=== PATIENT | female | born 1950 | race Caucasian/White ===

== ENCOUNTER → 2016-10-05 | Outpatient (CLI) | payer MEDICARE, BC, OTHER ==
[~2016-10-05] MED LIST: ASPI1TAB PO; ATOR1TAB19 PO; CELE10TA PO; CHLO25TA PO; CORITAB5 PO; CQ10 PO; FLON1SPR; MAGN1TAB25 PO; METO-209 PO; MULT1TAB15 PO; PEPC1TAB4 PO; SPIR25TA2 PO; TRAM50TA2 PO; TYLE650T35 PO
--- NOTE | 2016-10-05 12:22 | REP ---
Chest two views HISTORY: Acid reflux Comparison: None The lungs are clear. The heart is normal in size. The pulmonary vasculature is normal in appearance. The bony structure is intact. IMPRESSION: No acute disease. Signed by Narciso Jc MD 10/05/2016 12:14 P
[2016-10-05 12:23] LABS: INR 0.94
--- NOTE | 2016-10-05 18:49 | ECGEPIP ---
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 PATIENT WAS THEN MILDLY BRADYCARDIC OTHERWISE NO SIGNIFICANT CHANGES Electronically Signed On 10-05-2016 18:48:55 EST by Morales Howard
== END ==
LOC: M ADMPAT 10:35
PROVIDERS: ATTEND Orthopaedic Surgery
DX: M12.9 Arthropathy, unspecified (principal); Z01.818 Encounter for other preprocedural examination; I10 Essential (primary) hypertension; K21.9 Gastro-esophageal reflux disease without esophagitis; Z79.01 Long term (current) use of anticoagulants; Z79.899 Other long term (current) drug therapy

== ENCOUNTER 2016-10-19 05:39 | Inpatient (IN) | payer MEDICARE, BC, OTHER ==
[2016-10-05 11:43] VITALS: BP 100/76
--- NOTE | 2016-10-17 16:38 | HPE ---
DATE OF ADMISSION: 10/19/2016 CHIEF COMPLAINT: Left knee pain. HISTORY OF PRESENT ILLNESS: This is a pleasant 66-year-old female with progressively worsening left knee pain and stiffness. She has failed to improve with conservative treatment. She has elected for surgery for her continued symptoms. She has pain with weightbearing activities and her activities of daily living. X-rays of her knee are notable for advanced osteoarthritis of the left knee joint. She has consented for a left total knee arthroplasty by Dr. Corona Arreguin. Medical optimization was performed by Dr. Sewell. ALLERGIES: No known drug allergies. CURRENT MEDICATIONS: - Pepcid 20 mg - magnesium oxide 400 mg - Flonase 50 mcg - spironolactone 25 mg - Celexa 10 mg - Toprol-XL 100 mg - Lipitor 10 mg - baby aspirin once a day - chlorthalidone 25 mg once a day PAST MEDICAL HISTORY: 1. Kidney disorder. 2. Aortic valve disorder. 3. Chronic kidney disease, stage III. 4. Hypertension. 5. Obesity. 6. Gastroesophageal reflux disease (GERD). 7. Hypercholesterolemia. 8. Osteoarthritis. PAST SURGICAL HISTORY: Includes: 1. Tubal ligation. 2. Bilateral bunionectomies. 3. Right foot surgery. 4. Cholecystectomy. 5. Tonsils and adenoids. 6. Uvulopalatopharyngoplasty (UPPP). 7. Hernia repair. SOCIAL HISTORY: This lady is retired and she does not smoke. She occasionally drinks alcohol. FAMILY HISTORY: Noncontributory. REVIEW OF SYSTEMS: This patient denies chest pain, heart palpitations, cough, wheezing, difficulty breathing, and shortness of breath. She denies any abdominal pain, nausea, vomiting, diarrhea, or constipation. She denies recent upper respiratory infection or urinary tract infection symptoms. She does complain of persistent pain in the left knee and pain with weightbearing activities in her left knee. PHYSICAL EXAMINATION: GENERAL: She is a well-nourished, well-developed, in no acute distress, alert female patient. She walks with a moderate limp favoring the left lower extremity. She is not using assistive devices. VITAL SIGNS: She is 5 feet, 1 inch, weighs 237 pounds with a temperature of 97, blood pressure of 118/78, pulse of 80, and respirations of 18. NECK: Supple without adenopathy or jugular venous distention. There were no carotid bruits appreciated upon auscultation. LUNGS: Clear to auscultation without rales or wheeze throughout. HEART: Regular rate and rhythm. ABDOMEN: Bowel sounds were present. EXTREMITIES: Examination of the knee revealed intact skin. She had decreased range of motion secondary to pain and stiffness. The limb is neurovascularly intact. LABORATORY DATA: EKG showed normal sinus rhythm at 72 beats per minute. Chest x-ray showed no acute cardiopulmonary disease processes. UA showed a cloudy appearance, 2+ leukocyte esterase, 5 white blood cells, 1+ bacteria with a specific gravity of 1.021. Urine culture showed no growth. Nasal and sinus cultures showed normal christi. Prothrombin time 12.7, INR 0.94, sedimentation rate 46. Glucose 101, BUN 33, creatinine 1.7, sodium 140, potassium 5.2. IMPRESSION: Symptomatic osteoarthritis of the left knee joint. PLAN: Consented for a left total knee arthroplasty by Dr. Corona Arreguin.,
[2016-10-19] VITALS (15 sets, daily range): BP systolic 104–175; BP diastolic 60–99; O2SAT 95–97
[~2016-10-19] VITALS: Ht 160 cm; Wt 87.4 kg
[2016-10-19] MEDS ORDERED: LR 1,000 ML IV SCH ×3 (05:45→09:45)
[2016-10-19] MEDS ORDERED: MIDAZOLAM INJ 2 MG/2 ML VIAL (J2250) As Ordered ONE ×2 (06:51→07:01)
[2016-10-19] MEDS ORDERED: fentaNYL 100 MCG/2 ML INJECTION (J3010) As Ordered ONE ×4 (06:51→08:10)
[2016-10-19] MEDS ORDERED: LIDOCAINE 2% INJ 100 MG/5 ML SDV (FOR ANES.) As Ordered ONE (07:04)
[2016-10-19] MEDS ORDERED: PROPOFOL 200 MG/20 ML VIAL As Ordered ONE ×2 (07:04→07:05)
[2016-10-19] MEDS ORDERED: BUPIVACAINE HCL 0.25% 30 ML VIAL As Ordered ONE (07:14)
[2016-10-19] MEDS ORDERED: ceFAZolin 1GM INJ (J0690) As Ordered ONE (07:14)
[2016-10-19] MEDS ORDERED: TRANEXAMIC ACID 100 MG/ML 10ML VIAL As Ordered ONE (07:14)
[2016-10-19] MEDS ORDERED: EPINEPHrine INJ 1 MG/ML 1ML VIAL/AMP As Ordered ONE (07:15)
[2016-10-19] MEDS ORDERED: ROCURONIUM BROMIDE 50 MG/5 ML VIAL As Ordered ONE (07:21)
[2016-10-19] MEDS ORDERED: MIDAZOLAM INJ 2 MG/2 ML VIAL (J2250) IV ONE (07:45)
[2016-10-19] MEDS ORDERED: fentaNYL 100 MCG/2 ML INJECTION (J3010) IV ONE (07:45)
[2016-10-19] MEDS ORDERED: DESFLURANE 240 ML INHALANT As Ordered ONE (07:55)
[2016-10-19] MEDS ORDERED: ceFAZolin 1GM INJ (J0690) IR ONE (08:09)
[2016-10-19] MEDS ORDERED: BUPIVACAINE HCL 0.25% 30 ML VIAL XX ONE (08:09)
[2016-10-19] MEDS ORDERED: fentaNYL 100 MCG/2 ML INJECTION (J3010) XX ONE (08:09)
[2016-10-19] MEDS ORDERED: GLYCOPYRROLATE INJ 0.2 MG/ML 2 ML VIAL As Ordered ONE ×2 (08:10→08:36)
[2016-10-19] MEDS ORDERED: ONDANSETRON 4MG/2ML VIAL (J2405) As Ordered ONE ×2 (08:35→10:38)
[2016-10-19] MEDS ORDERED: NEOSTIGMINE 1MG/ML 5 ML SYRINGE (J2710) As Ordered ONE (08:36)
[2016-10-19] MEDS ORDERED: CHLORTHALIDONE 25 MG TAB PO SCH (09:00)
[2016-10-19] MEDS ORDERED: ROPIvacaine 0.5% 30 ML INJECTION (J2795) ONE (09:07)
[2016-10-19] MEDS ORDERED: dexameTHASONE 10 MG/1 ML VIAL PRES.FREE (J1100) ONE (09:07)
[2016-10-19] MEDS ORDERED: EPINEPHrine INJ 1 MG/ML 1ML VIAL/AMP ONE (09:07)
[2016-10-19] MEDS: fentaNYL 100 MCG/2 ML INJECTION (J3010) IV PRN ×3 (09:25→09:35)
[2016-10-19] MEDS ORDERED: ONDANSETRON 4MG/2ML VIAL (J2405) IV PRN ×2 (09:45→12:00)
[2016-10-19] MEDS ORDERED: HYDROmorphone HCL 1 MG/ML SYRINGE (J1170) IV PRN (09:45)
--- NOTE | 2016-10-19 11:01 | RO ---
DATE OF PROCEDURE: 10/19/2016 PREOPERATIVE DIAGNOSIS: Left knee osteoarthritis. POSTOPERATIVE DIAGNOSIS: Left knee osteoarthritis. PROCEDURE: Left total knee arthroplasty, PFC rotating platform, size 3 femur, size 2.5 tibia posterior stabilized size 15 polyethylene, and a 32 patellar button. SURGEON: Corona Arreguin MD ENOLOGIST: ANESTHESIA: General. ESTIMATED BLOOD LOSS (EBL): Less than 50. COMPLICATIONS: None. INDICATIONS: A 66-year-old woman who has had some gradually worsening left knee pain. It has been more than she could tolerate. She has been through multiple conservative management. She wished to go ahead with a left total knee arthroplasty. She understood the nature of the procedure, the risks of bleeding, infection, damage to nerves, vessels, persistent pain, wear, loosening, blood clots, medical problems, , among others. Preoperative clearance was obtained. DESCRIPTION OF PROCEDURE: The patient taken to the operating room, placed in supine position after general anesthesia was induced. The left lower extremity was prepped and draped in usual sterile fashion. Time-out was performed. I then created a longitudinal incision over the anterior aspect of the knee, and sharp dissection was carried down through subcutaneous tissue. I then performed a medial parapatellar arthrotomy in the usual fashion and everted the patella. I did a medial release, removed some of the soft tissue from the suprapatellar region on the femur. Then, flexed the knee up and used a canal initiating reamer on the femoral side to create a hole followed by the intramedullary guide set at 5 and 10. This was pinned in place by the assistant press operator, and then the distal femoral bone cut was made by the assistant press operator in the usual fashion while I protected soft tissues. I then sized the femur to be a 3 and placed the 3-degree external rotation guide, pinned this in place on the end of the femur, and the cutting block was then placed size 3, and the remaining cuts were made. I removed the excess bone. I removed any osteophytes from around the edges of the femur. We then prepared the tibia. The tibial alignment guide was then placed, the appropriate amount of valgus and posterior slope, and pinned this in place at about 4 mm off of the low side. The proximal tibial cut was made, and this bone was removed without difficulty. Soft tissues were protected at all times, and I used the cautery to remove the soft tissue attachments. Cautery was also used to control hemostasis throughout. I then removed soft tissue and osteophytes from either side of the joint using a memorial counselor and osteotome. There were fairly extensive osteophytes posteriorly. At this point, the tibial tray was prepared. A size 2.5 fit nicely. I then drilled and broached, and then we decided to go ahead with the posterior stabilized because the posterior cruciate ligament (PCL) was deficient. The box-cutting guide was then placed on the end of the femur and pinned in place. The distal cuts were made by me in the sagittal plane, and the assistant press operator made the axial cut on the end of the femur. I removed this excess bone, filed it down, and then placed trial components. We had used spacer blocks prior to this, and a size 12.5 and a size 15 seemed to be the ones that were most appropriate. Once we placed the actual trial polyethylene in, it was clear that the size 15 was a better fit, had no excessive tightness in flexion or extension, and had good stability. Overall, it was an excellent fit. I then freehand cut the patella, removing about 7 mm of bone, sized to be a 32, drilled the holes, placed a 32 trial button, put the knee through a range of motion. Again, was very happy with the way the knee moved and happy with the range of motion. There is no clicking or catching noted. The trial components removed. The assistant press operator prepared the bone cement in the modern technique on the back table, and then I irrigated the bony surfaces and dried them carefully. The tibial side was then cemented in after I copiously irrigated and dried the surfaces and packed the tibial tray in, then cemented on the femoral component in the usual fashion, placing some cement on the posterior condyles of the femoral component, and then placed the 15 rotating platform size 3 polyethylene, brought the knee out in extension. We had removed any excess bone cement throughout. Cement on the patellar component held it in place with the clamp and waited until the cement hardened. We irrigated again copiously. Controlled hemostasis with the cautery. I then closed the deep layer was some interrupted #1 Vicryl sutures, and then a running Stratafix suture was placed in each direction with the assistant press operator helping with this closure. Again, irrigated. Closed the subcutaneous with 2-0 Vicryl and the skin with bassam. The PainBuster catheter was inserted through the lateral aspect of the knee into the knee joint, and the catheter was fed through this. We primed it and attached it to the thigh. A sterile dressing was applied. Tourniquet was deflated. She was taken to recovery room in stable condition. There were no known complications. The plan will be routine postoperative for a knee replacement. The assistant press operator was instrumental in holding retractors and making a couple of the bone cuts and closing the wound.
[2016-10-19] MEDS ORDERED: MORPHINE PCA 1MG/ML 100ML CADD As Ordered ONE (11:13)
[2016-10-19] MEDS ORDERED: FLEET ENEMA PR PRN (11:45)
[2016-10-19] MEDS: LR 1,000 ML IV SCH ×2 (11:45→23:37)
[2016-10-19] MEDS ORDERED: ACETAMINOPHEN TAB 650MG DOSE (2X325MG) PO PRN (11:45)
[2016-10-19] MEDS ORDERED: PATIENT IS CURRENTLY ON AN ON-Q PAIN BUSTER PAIN RELIEF SYSTEM XX SCH (12:00)
[2016-10-19] MEDS ORDERED: MORPHINE PCA 1MG/ML 100ML CADD IV PRN (12:00)
[2016-10-19] MEDS ORDERED: diphenhydrAMINE INJ 50MG/ML VIAL (J1200) IV PRN (12:00)
[2016-10-19] MEDS ORDERED: NALOXONE INJ 0.4 MG/1 ML VIAL (J2310) IV PRN ×2 (12:00→19:45)
[2016-10-19] MEDS ORDERED: EPIDURAL/PCA KEYS XX PRN (12:00)
[2016-10-19] MEDS ORDERED: NALBUPHINE HCL 10 MG/ML AMP (J2300) IV PRN (12:00)
--- NOTE | 2016-10-19 12:13 | CR ---
DATE OF CONSULTATION: 10/19/2016 REASON FOR CONSULT: Management of chronic medical issues. CHIEF COMPLAINT: Left knee pain, status post left total knee arthroplasty by Dr. Corona Arreguin. REQUESTING PHYSICIAN: Orthopedic surgeon Dr. Corona Arreguin. HISTORY OF PRESENT ILLNESS: 66-year-old female with history of chronic kidney disease, baseline creatinine of 1.5, morbid obesity, hypertension, reflux, hypercholesterolemia, osteoarthritis, tubal ligation, cholecystectomy, hernia repair, tonsillectomy, adenoidectomy, uvulopalatopharyngoplasty, bilateral bunionectomies, right foot surgery, retired, no previous smoking or alcohol use, non-bleeding internal hemorrhoids on colonoscopy October 2013, complex renal cyst, presents for left knee arthroplasty due to severe osteoarthritis of the left knee with limitations of activities of daily living. Patient was optimized by Dr. Sewell. EKG on 10/05/2016 showed sinus rhythm with nonspecific T wave abnormalities with mild bradycardia, otherwise no significant changes from prior EKG. Currently denies any chest pain, pressure, tightness, shortness of breath, nausea, vomiting, abdominal pain, diarrhea, changes in weight, depression, anxiety, dysuria, urgency, frequency, upper or lower extremity weakness. Hospitalist service was consulted for management of chronic medical issues. PAST MEDICAL HISTORY: 1. Chronic kidney disease stage III. Baseline creatinine 1.5. 2. Hypertension. 3. Obesity. 4. Reflux. 5. Hypercholesterolemia. 6. Osteoarthritis. 7. Internal hemorrhoids. 8. Complex renal cysts, follows with urologist, Dr. Wallace. HOME MEDICATIONS: - Pepcid 20 daily - magnesium oxide 400 daily - Flonase 50 mcg daily - spironolactone 25 mg daily - Celexa 10 daily - Topamax 100 daily - Lipitor 10 daily - aspirin 81 mg daily - chlorthalidone 25 daily PAST SURGICAL HISTORY: 1. Tubal ligation. 2. Bilateral bunionectomies. 3. Right foot surgery. 4. Cholecystectomy. 5. Tonsillectomy. 6. Hemorrhoidectomy. 7. Uvulopalatopharyngoplasty. 8. Hernia repair. ALLERGIES: No known drug allergies. FAMILY HISTORY: Father in the 80s with myocardial infarction (AL). Mother age 93 of cerebrovascular accident (CVA). Two siblings at . One brother passed from pulmonary embolism (PE) in the 50s. One brother with rheumatoid arthritis. Three brothers, four sisters, two sons, one daughter all are healthy. SOCIAL HISTORY: One to two caffeinated beverages a day. Regular diet. No alcohol use, drug use or smoking history. REVIEW OF SYSTEMS: Per history of present illness. PHYSICAL EXAMINATION: Vitals: Temperature 97.6, pulse 66, respiratory 16, blood pressure 129/82, 95% on room air. Generally, patient is awake, alert, oriented to person, place and time, no icterus, no jaundice, no use of respiratory accessory muscles. No pallor. Pupils are round and reactive. Extraocular muscles are intact. No jugular venous distention or thyromegaly. Lungs: Clear to auscultation. No wheezing, rales or rhonchi. Heart: S1, S2, sinus rhythm. Abdomen: Soft, nontender, nondistended. Obese abdomen. Extremities: Left postop knee. Peripheral pulses palpable. No current laboratory data. ASSESSMENT AND PLAN: This is a 66-year-old female status post left knee arthroplasty due to severe osteoarthritis with no postop complications. She has prior history of chronic kidney disease stage III, hypertension, obesity, reflux , hypercholesterolemia, arthritis, admitted for the following issues: 1. Left knee osteoarthritis status post left knee arthroplasty. Postop management per primary team, Dr. Corona Arreguin. Physical therapy (PT), occupational therapy (OT), pain management, chad regimen and deep venous thrombosis (DVT) prophylaxis. Activity as tolerated. 2. Abnormal EKG with prior episodes of sinus bradycardia. No current complaints of shortness of breath, chest pain, pressure, tightness, palpitations, lightheadedness. Will monitor. 3. Hypertension, stable. Continue with home medications, spironolactone, Toprol and chlorthalidone. 4. Hyperlipidemia, continue on Lipitor. 5. History of reflux, continue on Pepcid. MTDD
[2016-10-19 12:37] LABS: BASO % 0.1 % (0.0-1.0); EOS % 0.2 % (0.0-3.0); LARGE UNSTAINED CELL % 0.3 % (0.0-4.0); LYMPH # 0.9 K/mm3 (1.5-4.5); MEAN CORPUSCULAR HEMOGLOBIN 30.5 pg (27.0-33.0); MEAN CORPUSCULAR HGB CONC 33.3 g/dl (32.0-36.5); MEAN CORPUSCULAR VOLUME 91.5 fl (80.0-96.0); MONO # 0.3 K/mm3 (0.0-0.8); NEUTROPHILS # 11.8 K/mm3 (1.8-7.7); NEUTROPHILS % 90.4 % (36.0-66.0); PLATELET COUNT, AUTOMATED 183 k/mm3 (150-450)
[2016-10-19 12:53] LABS: ALBUMIN 3.4 GM/DL (3.2-5.2); ALBUMIN/GLOBULIN RATIO 1.17 (1.00-1.93); BILIRUBIN,TOTAL 0.5 MG/DL (0.2-1.0); CALCIUM LEVEL 9.1 MG/DL (8.8-10.2); CREATININE FOR GFR 1.56 MG/DL (0.55-1.02); GLOMERULAR FILTRATION RATE 35.2 (>45); MAGNESIUM LEVEL 1.8 MG/DL (1.8-2.4); TOTAL PROTEIN 6.3 GM/DL (6.4-8.2)
[2016-10-19 13:06] LABS: POTASSIUM SERUM 5.2 MEQ/L (3.5-5.1)
[2016-10-19] MEDS ORDERED: WARFARIN SOD 5 MG TAB PO SCH (17:00)
[2016-10-19] MEDS ORDERED: NALOXONE INJ 0.4 MG/1 ML VIAL (J2310) IV STA (19:22)
[2016-10-19] MEDS ORDERED: NALOXONE INJ 0.4 MG/1 ML VIAL (J2310) IV ONE (19:30)
[2016-10-19] MEDS: FLUTICASONE PROP 0.05% NASAL SPRAY 16 GM (FLONASE) SCH (21:23)
[2016-10-19] MEDS: CitaloPRAM (CeleXA) 10 MG TABLET PO SCH (21:24)
[2016-10-19] MEDS: ATORVASTATIN 10 MG TAB PO SCH (21:24)
[2016-10-20] VITALS (10 sets, daily range): BP systolic 122–158; BP diastolic 58–78; O2SAT 91–94
[2016-10-20 05:29] LABS: MEAN CORPUSCULAR HEMOGLOBIN 31.2 pg (27.0-33.0); MEAN CORPUSCULAR HGB CONC 33.5 g/dl (32.0-36.5); MEAN CORPUSCULAR VOLUME 93.1 fl (80.0-96.0); RED CELL DISTRIBUTION WIDTH 12.2 % (11.5-14.5); WHITE BLOOD COUNT 9.8 K/mm3 (4.0-10.0)
[2016-10-20 05:31] LABS: CALCIUM LEVEL 9.5 MG/DL (8.8-10.2); CREATININE FOR GFR 2.35 MG/DL (0.55-1.02)
[2016-10-20 05:36] LABS: POTASSIUM SERUM 5.2 MEQ/L (3.5-5.1)
[2016-10-20] MEDS: NS 1,000 ML IV SCH ×2 (07:37→15:10)
[2016-10-20] MEDS ORDERED: SOD POLYSTYRENE SULFONATE SUSP 15 GM/60 ML UD PO ONE (08:00)
[2016-10-20] MEDS ORDERED: CALCIUM GLUCONATE 1,000 MG in D5W MINI-BAG PLUS 100 ML IV ONE (08:00)
[2016-10-20] MEDS: FLUTICASONE PROP 0.05% NASAL SPRAY 16 GM (FLONASE) SCH ×2 (08:31→21:34)
[2016-10-20] MEDS: METOPROLOL SUCC (TopROL XL) 100MG *XL* TAB PO SCH (08:32)
[2016-10-20] MEDS: OCUVITE 1 TAB PO SCH (08:33)
[2016-10-20 08:42] LABS: INR 1.16
[2016-10-20] MEDS ORDERED: SPIRONOLACTONE 25 MG TAB PO SCH (09:00)
--- NOTE | 2016-10-20 09:37 | REP ---
Left knee two views postoperative study: Comparison is a preoperative study dated 07/13/2016. There is a total knee arthroplasty with the components tightly applied and in satisfactory positions alignment in both projections. Skin bassam are incidentally noted. Signed by Marshall Jeter MD 10/20/2016 09:28 A
--- NOTE | 2016-10-20 09:44 | IPN ---
DATE: 10/20/2016 Patient complains of left knee pain. Stated is crampy but improved with pain medications. Overnight patient had a creatinine increase from 1.56 to 2.35. Input and output is documented at 2.8 liters in, output of 580. Currently, current weight is 110.2 kg. Patient denies any shortness of breath, chest pain, pressure, tightness, palpitations, lightheadedness, nausea, vomiting, abdominal pain or diarrhea. Current temperature 98.6, pulse 93, respiratory 18, blood pressure 122/69, 97% 2 liters nasal cannula. Lungs: Clear to auscultation. No wheezing, rales or rhonchi. Heart: S1, S2. Sinus rhythm. Abdomen: Soft, obese, nontender, nondistended. Extremities: Postop left knee. Peripheral pulses are noted. No cyanosis or clubbing. LABORATORY DATA: Notable for a creatinine of 2.35 from baseline of 1.5. CBC has been reviewed. Microbiology: None. ASSESSMENT AND PLAN: 66-year-old female with history of complex cyst in the left kidney since 11/2012, chronic kidney stage III with acute on chronic baseline creatinine of 1.5, hypertension, obesity, reflux, hypercholesterolemia, osteoarthritis, external hemorrhoids, presents to [facility] for left knee arthroplasty due to severe osteoarthritis limiting activities of daily living. CURRENT ISSUES: 1. Acute on chronic renal failure, history of complex cyst, follows with urologist, Dr. Wallace. Patient's diuretics and reji inhibitor have been discontinued. Trial of fluids and repeat renal ultrasound. Monitor input and output, daily weights, and avoid nephrotoxins. Renally dose all medications. 2. Hypertension on metoprolol. 3. Hyperlipidemia, on Lipitor. 4. Left knee arthroplasty postop day #1. Deep venous thrombosis (DVT) prophylaxis with Coumadin per orthopedic surgery. Pain control, physical therapy (PT), bowel regimen. 6. History of reflux on Pepcid. 7. Depression on Celexa. 8. Hyperkalemia, calcium gluconate. kayexalate. Repeat metabolic panel this afternoon. MTDD
[2016-10-20] MEDS: MIRALAX *UNIT DOSE* 17GM PACKET PO SCH (10:20)
[2016-10-20] MEDS: SENOKOT S TAB PO SCH ×2 (10:21→21:33)
[2016-10-20] MEDS: PERCOCET 5MG/325MG TAB PO PRN ×3 (10:21→21:32)
--- NOTE | 2016-10-20 11:14 | REP ---
Renal ultrasound: Comparison is 12/30/2015. The right kidney is normal size measuring 10.0 x 4.6 x 4.0 cm. The left kidney is atrophic size measuring 8.5 x 5.5 x 4.9 cm (previously normal size 10.3 x 3.8 x 4.8 cm). The Renal cortical echogenicity is normal bilaterally. There is no hydronephrosis on the right on the left. No renal calculi are identified. There are no cysts in the right kidney. In the left kidney there are two cysts, one at the mid pole measuring 2.0 cm and one at the lower pole measuring 2.1 cm. Upon review of prior studies I note that on a CT of the abdomen and pelvis dated 02/27/2015 four left renal cysts were identified. There was a cyst medially containing a small mural calcification, compatible with a Bosniak type 2 cyst. This calcification is not identified by ultrasound today, likely because of its small size. Calcified vascular atheroma was noted in intraparenchymal arteries. No renal masses are identified. Impression: No hydronephrosis, calculus or renal mass on the right on the left. There are left renal cysts as described. Bladder: There is a Sanchez catheter in the bladder, the bladder is collapsed and cannot be evaluated at this time. Signed by Marshall Jeter MD 10/20/2016 11:06 A
[2016-10-20] MEDS ORDERED: WARFARIN SOD 3 MG TAB PO ONE (17:00)
[2016-10-20 18:37] LABS: CALCIUM LEVEL 8.9 MG/DL (8.8-10.2); CREATININE FOR GFR 1.82 MG/DL (0.55-1.02); GLOMERULAR FILTRATION RATE 29.5 (>45); POTASSIUM SERUM 4.4 MEQ/L (3.5-5.1)
[2016-10-20] MEDS: ATORVASTATIN 10 MG TAB PO SCH (21:32)
[2016-10-20] MEDS: CitaloPRAM (CeleXA) 10 MG TABLET PO SCH (21:33)
[2016-10-21] VITALS (13 sets, daily range): BP systolic 133–160; BP diastolic 67–81; O2SAT 74–99
[2016-10-21] MEDS ORDERED: SLF 3 ML SYR IV PRN (00:30)
[2016-10-21 00:46] LABS: CALCIUM LEVEL 8.7 MG/DL (8.8-10.2); CREATININE FOR GFR 1.54 MG/DL (0.55-1.02); GLOMERULAR FILTRATION RATE 35.8 (>45); POTASSIUM SERUM 4.2 MEQ/L (3.5-5.1)
[2016-10-21] MEDS: PERCOCET 5MG/325MG TAB PO PRN ×3 (02:46→20:59)
[2016-10-21] MEDS: SLF 3 ML SYR IV SCH ×3 (05:41→21:00)
[2016-10-21 06:00] LABS: MEAN CORPUSCULAR HEMOGLOBIN 31.9 pg (27.0-33.0); MEAN CORPUSCULAR HGB CONC 34.9 g/dl (32.0-36.5); MEAN CORPUSCULAR VOLUME 91.3 fl (80.0-96.0); RED CELL DISTRIBUTION WIDTH 12.3 % (11.5-14.5); WHITE BLOOD COUNT 8.8 K/mm3 (4.0-10.0)
[2016-10-21 06:05] LABS: INR 1.47
[2016-10-21 06:19] LABS: CALCIUM LEVEL 9.1 MG/DL (8.8-10.2); CREATININE FOR GFR 1.45 MG/DL (0.55-1.02); GLOMERULAR FILTRATION RATE 38.3 (>45); POTASSIUM SERUM 4.4 MEQ/L (3.5-5.1)
[2016-10-21] MEDS: ONDANSETRON 4MG/2ML VIAL (J2405) IV PRN (09:24)
[2016-10-21] MEDS ORDERED: ONDANSETRON 4MG/2ML VIAL (J2405) IV PRN (09:30)
[2016-10-21] MEDS: FAMOTIDINE 20 MG TAB PO PRN (09:45)
[2016-10-21] MEDS: FLUTICASONE PROP 0.05% NASAL SPRAY 16 GM (FLONASE) SCH ×2 (09:45→20:59)
[2016-10-21] MEDS: SENOKOT S TAB PO SCH ×2 (09:45→20:59)
[2016-10-21] MEDS: MIRALAX *UNIT DOSE* 17GM PACKET PO SCH (09:45)
[2016-10-21] MEDS: METOPROLOL SUCC (TopROL XL) 100MG *XL* TAB PO SCH (09:46)
[2016-10-21] MEDS: OCUVITE 1 TAB PO SCH (09:46)
--- NOTE | 2016-10-21 12:40 | IPN ---
DATE: 10/21/2016 The patient is seen and examined at the bedside. Chart has been reviewed. This morning, the patient has no new complaints aside from pain at the surgical site on the left. Denies any shortness of breath, chest pain, pressure, tightness, nausea, vomiting, epigastric pain, constipation, diarrhea. Tolerating her diet well. Did not sleep very well last evening due to multiple interruptions and could not find the correct position to sleep secondary to knee pain. VITAL SIGNS: Temperature 96.1, pulse 107, respiratory rate 22, blood pressure 145/22, 95% on room air. Input 1110, output 725. GENERAL: Awake, alert, oriented to time. Answering questions appropriately. LUNGS: Clear to auscultation with no wheezing, rales or rhonchi. HEART: S1, S2. Sinus rhythm. ABDOMEN: Obese. Soft, nontender, nondistended. EXTREMITIES: No cyanosis or clubbing. Postoperative left knee. Laboratory data, imaging studies and microbiology have been reviewed. ASSESSMENT AND PLAN: 66-year-old female with a history of complex cyst in the left kidney since November 2012, chronic kidney disease, baseline creatinine 1.5, hypertension, obesity, reflux, hypercholesterolemia, osteoarthritis, external hemorrhoids, who presented to the [facility] for left knee arthroplasty with severe osteoarthritis limiting her activities of daily living. CURRENT ISSUES: 1. Acute on chronic renal failure stage III with history of complex cyst. Followed by urologist, Dr. Wallace. The patient's diuretics and MARINO inhibitor have been discontinued. Trial of intravenous fluids. Have brought her back to her baseline creatinine. Renal ultrasound is unremarkable with a history of complex renal cyst managed by outpatient urologist, Dr. Wallace. Renally dose all medications. Strict input and output, daily weights, and avoid nephrotoxins. 2. Hypertension. On metoprolol. Avoid MARINO inhibitors or diuretics due to renal failure. 3. Hyperlipidemia. On Lipitor. 4. Left knee arthroplasty, postoperative day number 2. 5. Deep vein thrombosis (DVT) prophylaxis with Coumadin per orthopedic surgery, pain control, physical therapy (PT) and bowel regimen. 6. History of reflux. On Pepcid. 7. Depression. On Celexa. 8. Hyperkalemia. Resolved. The patient may be transferred to medical/surgical floor. [facility]
[2016-10-21 13:17] LABS: CALCIUM LEVEL 9.4 MG/DL (8.8-10.2); CREATININE FOR GFR 1.39 MG/DL (0.55-1.02); GLOMERULAR FILTRATION RATE 40.3 (>45); POTASSIUM SERUM 4.1 MEQ/L (3.5-5.1)
[2016-10-21] MEDS ORDERED: WARFARIN SOD 3 MG TAB PO ONE (17:00)
[2016-10-21 18:41] LABS: CALCIUM LEVEL 9.9 MG/DL (8.8-10.2); CREATININE FOR GFR 1.51 MG/DL (0.55-1.02); GLOMERULAR FILTRATION RATE 36.6 (>45); POTASSIUM SERUM 4.4 MEQ/L (3.5-5.1)
[2016-10-21] MEDS: ATORVASTATIN 10 MG TAB PO SCH (21:00)
[2016-10-21] MEDS: CitaloPRAM (CeleXA) 10 MG TABLET PO SCH (21:00)
[2016-10-22 00:16] LABS: CALCIUM LEVEL 9.5 MG/DL (8.8-10.2); CREATININE FOR GFR 1.38 MG/DL (0.55-1.02); GLOMERULAR FILTRATION RATE 40.6 (>45); POTASSIUM SERUM 4.1 MEQ/L (3.5-5.1)
[2016-10-22] MEDS: PERCOCET 5MG/325MG TAB PO PRN ×4 (03:04→20:31)
[2016-10-22 05:50] LABS: MEAN CORPUSCULAR HEMOGLOBIN 31.3 pg (27.0-33.0); MEAN CORPUSCULAR HGB CONC 33.5 g/dl (32.0-36.5); MEAN CORPUSCULAR VOLUME 93.4 fl (80.0-96.0); WHITE BLOOD COUNT 8.4 K/mm3 (4.0-10.0)
[2016-10-22] MEDS: SLF 3 ML SYR IV SCH ×3 (05:58→21:18)
[2016-10-22 05:59] LABS: INR 1.76
[2016-10-22 06:00] VITALS: BP 147/82
[2016-10-22 06:06] LABS: CALCIUM LEVEL 9.9 MG/DL (8.8-10.2); CREATININE FOR GFR 1.4 MG/DL (0.55-1.02); GLOMERULAR FILTRATION RATE 39.9 (>45); POTASSIUM SERUM 4.2 MEQ/L (3.5-5.1)
[2016-10-22] MEDS: OCUVITE 1 TAB PO SCH (08:08)
[2016-10-22] MEDS: MIRALAX *UNIT DOSE* 17GM PACKET PO SCH (08:08)
[2016-10-22] MEDS: SENOKOT S TAB PO SCH ×2 (08:09→20:31)
[2016-10-22] MEDS: FLUTICASONE PROP 0.05% NASAL SPRAY 16 GM (FLONASE) SCH ×2 (08:09→20:31)
[2016-10-22] MEDS: METOPROLOL SUCC (TopROL XL) 100MG *XL* TAB PO SCH (08:09)
[2016-10-22 12:50] LABS: CALCIUM LEVEL 10.1 MG/DL (8.8-10.2); CREATININE FOR GFR 1.49 MG/DL (0.55-1.02); GLOMERULAR FILTRATION RATE 37.2 (>45); POTASSIUM SERUM 4.1 MEQ/L (3.5-5.1)
--- NOTE | 2016-10-22 15:04 | NOCOX ---
DATE OF PROCEDURE: 10/22/2016 Nocturnal oximetry was performed from 10/21/2016 to 10/22/2016 on room air. The patient's baseline oxygen saturation was 94%. Heart rate ranged from 83-109, oxygen saturation ranged from 71-100%. There were frequent variable desaturations that were short lived. Baseline tracing shows artifact. I question if the patient has a tremor. Longest continuous time with a saturation less than 88% was 50 seconds. The total continuous time with an oxygen saturation less than 88% was 3 minutes and 40 seconds. IMPRESSION: Variable desaturation with baseline artifact, question tremor. Consider obstructive sleep apnea workup if clinically suspected. JANETT
[2016-10-22] MEDS ORDERED: WARFARIN SOD 4 MG TAB PO ONE (17:00)
[2016-10-22 18:25] LABS: CALCIUM LEVEL 9.5 MG/DL (8.8-10.2); CREATININE FOR GFR 1.46 MG/DL (0.55-1.02); POTASSIUM SERUM 4.5 MEQ/L (3.5-5.1)
[2016-10-22] MEDS: FAMOTIDINE 20 MG TAB PO PRN (18:52)
[2016-10-22] MEDS: ONDANSETRON 4MG/2ML VIAL (J2405) IV PRN (18:52)
[2016-10-22] MEDS: ATORVASTATIN 10 MG TAB PO SCH (20:31)
[2016-10-22] MEDS: CitaloPRAM (CeleXA) 10 MG TABLET PO SCH (20:31)
[2016-10-22 22:00] VITALS: BP 132/68
[2016-10-23 00:32] LABS: CALCIUM LEVEL 9.4 MG/DL (8.8-10.2); CREATININE FOR GFR 1.42 MG/DL (0.55-1.02); GLOMERULAR FILTRATION RATE 39.3 (>45); POTASSIUM SERUM 4.2 MEQ/L (3.5-5.1)
[2016-10-23] MEDS: PERCOCET 5MG/325MG TAB PO PRN ×5 (02:27→22:38)
--- NOTE | 2016-10-23 04:24 | IPN ---
DATE: 10/22/2016 The patient is seen and examined at the bedside. Chart has been reviewed. This morning, the patient states that the leg is feeling much more comfortable. Physical therapy (PT) had evaluated her; awaiting clearance for discharge home. PHYSICAL EXAMINATION: VITAL SIGNS: Temperature 96.9, pulse 94, respiratory rate 18, blood pressure 147/82, 99% on room air. GENERAL: Awake, alert, oriented times three, answering questions appropriately. LUNGS: Clear to auscultation with no wheezing, rales or rhonchi. HEART: S1, S2. Sinus rhythm. ABDOMEN: Soft, nontender, nondistended. Positive bowel sounds. EXTREMITIES: Postoperative left knee. Distal pulses noted. Some ecchymosis at the ankle, but otherwise skin is pink, warm, dry and well-perfused. LABORATORY DATA: INR 1.76. CBC and metabolic panel have been reviewed and notable for creatinine of 1.4, baseline creatinine. ASSESSMENT AND PLAN: This is a 66-year-old female with history of complex cyst left kidney since November 2012, chronic kidney disease, baseline creatinine 1.5, hypertension, obesity, reflux, hypercholesterolemia, osteoarthritis, external hemorrhoids, who presented to the [facility] for left knee arthroplasty due to severe osteoarthritis limiting her activities of daily living. Postoperatively, the patient developed [id number] renal failure, transferred to hospitalist service, has since received intravenous fluids resulting in improvement to baseline creatinine. CURRENT ISSUES: 1. Left knee arthroplasty, postoperative day number three. Pain management, deep vein thrombosis (DVT) prophylaxis with Coumadin per orthopedic surgery. Physical therapy, bowel regiment. Awaiting PT clearance for home, then may be discharged safely as she is medically stable. 2. [id number] renal failure stage III currently at baseline creatinine. Avoid nephrotoxins. Renally dose all medications. Follows with Dr. Wallace for history of complex cyst. Diuretics and MARINO inhibitors have been discontinued. Trial of intravenous fluids have returned her creatinine back to normal. Renal ultrasound was unremarkable. No significant change from known history of complex cyst. Strict input and output, daily weights, and avoid nephrotoxins and renally dose all medications. 3. Hypertension. Currently on metoprolol. Avoid nephrotoxins, diuretics. If uncontrolled, may add Norvasc. DISPOSITION: Once cleared by physical therapy, may be discharged home without outpatient followup with her primary care physician. [facility]
[2016-10-23] MEDS: SLF 3 ML SYR IV SCH ×3 (05:08→22:39)
[2016-10-23 06:00] VITALS: BP 118/82
[2016-10-23] MEDS ORDERED: SENO8.6T10 PO (06:37)
[2016-10-23] MEDS ORDERED: PERCOCET PO (06:37)
[2016-10-23] MEDS ORDERED: PEG1POW PO (06:37)
[2016-10-23] MEDS ORDERED: COUM2.5T11 PO (06:45)
[2016-10-23 07:01] LABS: INR 1.88
[2016-10-23 07:05] LABS: MEAN CORPUSCULAR HEMOGLOBIN 30.9 pg (27.0-33.0); MEAN CORPUSCULAR HGB CONC 33.8 g/dl (32.0-36.5); MEAN CORPUSCULAR VOLUME 91.5 fl (80.0-96.0); WHITE BLOOD COUNT 7.5 K/mm3 (4.0-10.0)
[2016-10-23] MEDS ORDERED: ONDA4TAB6 PO (07:24)
[2016-10-23] MEDS: METOPROLOL SUCC (TopROL XL) 100MG *XL* TAB PO SCH (09:00)
[2016-10-23] MEDS: MIRALAX *UNIT DOSE* 17GM PACKET PO SCH (09:00)
[2016-10-23] MEDS: SENOKOT S TAB PO SCH ×2 (09:58→22:38)
[2016-10-23] MEDS: OCUVITE 1 TAB PO SCH (10:00)
[2016-10-23] MEDS: FLUTICASONE PROP 0.05% NASAL SPRAY 16 GM (FLONASE) SCH ×2 (10:02→22:38)
[2016-10-23] MEDS: ONDANSETRON 4MG/2ML VIAL (J2405) IV PRN (13:08)
[2016-10-23 14:00] VITALS: BP 119/65
[2016-10-23] MEDS ORDERED: WARFARIN SOD 2.5 MG TAB PO SCH (17:00)
--- NOTE | 2016-10-23 18:24 | IPN ---
DATE: 10/23/2016 Patient is seen and examined at the bedside. Chart has been reviewed. She has no complaints of chest pain, pressure or tightness, lightheadedness, near syncope. Slept well last night. Pain is better controlled with current medications. She is requesting some oral Zofran which helps her at home. VITAL SIGNS: Temperature 96.6, pulse 80, respiratory rate 18, blood pressure 115/72, 99% on room air. LUNGS: Clear to auscultation. No wheezing, rales, or rhonchi. HEART: S1, S2, sinus rhythm. ABDOMEN: Soft, nontender, nondistended. Positive bowel sounds. Obese abdomen. EXTREMITIES: Postoperative left knee, distal pulses noted, some ecchymosis of the ankle, otherwise pink, warm, dry, and well-perfused. LABORATORY DATA: Has been reviewed. INR is 1.88, creatinine is at baseline at 1.42. ASSESSMENT AND PLAN: This is a 66-year-old female with history of chronic kidney disease stage III, history of complex cyst on the left kidney since November 2012, followed by Dr. Wallace, urologist, as outpatient, baseline creatinine of 1.4 to 1.5, hypertension, obesity, reflux, hypercholesterolemia, osteoarthritis, external hemorrhoids, presented to [facility] for a left knee arthroplasty due to severe osteoarthritis limiting her activities of daily living. Postoperatively, patient developed acute on chronic renal failure, transferred to hospitalist service, and has received intravenous fluids, resulting in improvement to baseline creatinine. CURRENT ISSUES: 1. Left knee arthroplasty. Postoperative day #4. Pain management, deep venous thrombosis (DVT) prophylaxis with Coumadin, per orthopedic surgery. Physical therapy. Bowel regimen. Awaiting physical therapy (PT) clearance for home then may be safely discharged as she is medically stable. 2. Acute on chronic renal failure stage III, improved back to baseline. Avoid nephrotoxins. Renally dose all medications. Follows with Dr. Wallace for history of complex cyst since 2012. Diuretics and angiotensin-converting enzyme (MARINO) inhibitors have been discontinued. Patient has improved well back to baseline with a trial of intravenous fluids. Renal ultrasound was unremarkable aside from known history of complex cyst. Strict intake and output, daily weights. Avoid nephrotoxins and renally dose all medications. 3. Hypertension. Currently on metoprolol. Avoid diuretics, angiotensin-converting enzyme (MARINO) inhibitors and ARBs for now. May add Norvasc in case patient's blood pressure is not well maintained. DISPOSITION: Once cleared by physical therapy she may be discharged home with immediate outpatient followup with her primary care physician and orthopedic surgery. INR to be managed by orthopedic surgery. JANETT
[2016-10-23 22:00] VITALS: BP 120/63
[2016-10-23] MEDS: ATORVASTATIN 10 MG TAB PO SCH (22:38)
[2016-10-23] MEDS: CitaloPRAM (CeleXA) 10 MG TABLET PO SCH (22:38)
[2016-10-23] MEDS: FAMOTIDINE 20 MG TAB PO PRN (22:38)
[2016-10-24] MEDS: PERCOCET 5MG/325MG TAB PO PRN ×3 (04:03→14:45)
[2016-10-24] MEDS: SLF 3 ML SYR IV SCH (05:07)
[2016-10-24 06:00] VITALS: BP 119/62
[2016-10-24] MEDS: SENOKOT S TAB PO SCH (08:32)
[2016-10-24] MEDS: MIRALAX *UNIT DOSE* 17GM PACKET PO SCH (08:32)
[2016-10-24] MEDS: OCUVITE 1 TAB PO SCH (08:32)
[2016-10-24 08:33] VITALS: BP 119/62
[2016-10-24] MEDS: METOPROLOL SUCC (TopROL XL) 100MG *XL* TAB PO SCH (08:33)
[2016-10-24] MEDS: FLUTICASONE PROP 0.05% NASAL SPRAY 16 GM (FLONASE) SCH (08:33)
--- NOTE | 2016-10-24 14:03 | DSES ---
DATE OF ADMISSION: 10/19/2016 DATE OF DISCHARGE: PRIMARY DISCHARGE DIAGNOSES: 1. Left knee osteoarthritis status post left knee arthroplasty. 2. Acute on chronic renal failure, stage III. 3. History of complex cyst. 4. Hypertension. DISCHARGE MEDICATIONS: - Percocet 5/325 one tablet every 4 hours as needed for pain - MiraLAX one packet daily - warfarin 2.5 mg as directed - Senokot one tablet twice a day - aspirin 81 daily - atorvastatin 10 at bedtime - Celexa 10 at bedtime - Coricidin one tablet by mouth twice a day - Pepcid 20 twice a day as needed - Flonase 50 mcg twice a day - magnesium oxide 400 daily - metoprolol 100 daily - multivitamin one tablet daily - Coenzyme Q 200 at bedtime The patient's chlorthalidone, spironolactone and tramadol have been discontinued. The patient is to have an immediate followup with her primary care physician this week. Avoid NSAID use, diuretics, MARINO inhibitors, ARB due to acute on chronic renal failure, peak creatinine of 2.35, baseline creatinine of 1.4, and history of chronic renal cysts. HOSPITAL COURSE: 66-year-old female with history of chronic kidney disease Stage III, complex cyst of the left kidney since November [address] Wallace as outpatient with baseline creatinine of 1.4 to 1.5, hypertension, obesity, reflux, hypercholesterolemia, osteoarthritis, and external hemorrhoids who presented to [facility] for a left knee arthroplasty due to severe osteoarthritis limiting her activities of daily living. Postoperatively, the patient developed acute on chronic renal failure and was transferred to the hospitalist service with a peak creatinine of 2.35 with baseline creatinine of 1.4. The patient's diuretics were discontinued and she was hydrated with IV fluids and with no complaints of respiratory distress with resultant improvement of creatinine to 1.42 on the day of discharge. The patient was placed on deep vein thrombosis (DVT) prophylaxis, pain medications and bowel regimen by orthopedic surgery with the primary service. She passed a home safety evaluation and is safely discharged home with DVT prophylaxis to be managed by the orthopedic surgeon. The patient's blood pressure had remained stable with systolic pressure ranging from 118 to 132 systolic on her home dose of metoprolol. The patient is to follow up with her outpatient physician within a week of discharge to monitor her volume status in light of discontinuation of her diuretic due to acute on chronic renal failure. Evaluation also included renal ultrasound which showed her known history of left renal cyst unchanged from prior CT on 02/27/2015, followed by the urologist Dr. Wallace as an outpatient. TIME SPENT ON DISCHARGE: 30 minutes. LABS ON DISCHARGE: White count 7.5, hemoglobin 9.3, hematocrit 27 and platelet count 194. Sodium 139, potassium 4.2, chloride 102, bicarbonate 31, BUN 22, creatinine 1.42, glucose 107. IMAGING STUDY: Renal ultrasound with no hydronephrosis, calculus or renal mass on the right or left. There are left renal cysts as described.
== END 2016-10-24 15:00 | disposition home health service (06) | DRG 470 ==
LOC: M OR 05:39 → M PCU 13:49 → M MS5PR 10-21 11:24
PROVIDERS: ADMIT Orthopaedic Surgery; ATTEND General Practice
PROC: 0SRD0J9 Replacement of Left Knee Joint with Synthetic Substitute, Cemented, Open Approach (ICD-10-PCS; principal; 2016-10-19 07:30)
DX: M17.12 Unilateral primary osteoarthritis, left knee (principal); N17.9 Acute kidney failure, unspecified; Z68.41 Body mass index [BMI] 40.0-44.9, adult; N18.3 Chronic kidney disease, stage 3 (moderate); I13.10 Hypertensive heart and chronic kidney disease without heart failure, with stage 1 through stage 4 chronic kidney disease, or unspecified chronic kidney disease; K21.9 Gastro-esophageal reflux disease without esophagitis; R26.89 Other abnormalities of gait and mobility; E78.00 Pure hypercholesterolemia, unspecified; I35.2 Nonrheumatic aortic (valve) stenosis with insufficiency; E66.01 Morbid (severe) obesity due to excess calories; R73.03 Prediabetes; K64.8 Other hemorrhoids; N28.1 Cyst of kidney, acquired; E78.5 Hyperlipidemia, unspecified; E87.5 Hyperkalemia; F32.9 Major depressive disorder, single episode, unspecified; Z79.899 Other long term (current) drug therapy; Z79.82 Long term (current) use of aspirin

== ENCOUNTER → 2016-10-27 | Outpatient (REF) | payer MEDICARE, OTHER ==
[~2016-10-27] MED LIST changes: +COUM2.5T11 PO; +ONDA4TAB6 PO; +PEG1POW PO; +PERCOCET PO; +SENO8.6T10 PO
[2016-10-27 12:28] LABS: INR 1.67
== END ==
LOC: M SHH 11:54
PROVIDERS: ATTEND Nurse Practitioner Family
DX: Z79.01 Long term (current) use of anticoagulants (principal)

== ENCOUNTER → 2016-10-31 | Outpatient (REF) | payer MEDICARE, OTHER ==
[2016-10-31 16:03] LABS: INR 1.32
== END ==
LOC: M SHH 15:37 → M LABDRAW1 15:37
PROVIDERS: ATTEND Nurse Practitioner Family
DX: M17.12 Unilateral primary osteoarthritis, left knee (principal); Z79.01 Long term (current) use of anticoagulants

== ENCOUNTER → 2016-11-03 | Outpatient (REF) | payer MEDICARE, OTHER ==
[2016-11-03 11:24] LABS: INR 1.39
== END ==
LOC: M SHH 11:07
PROVIDERS: ATTEND Nurse Practitioner Family
DX: M17.12 Unilateral primary osteoarthritis, left knee (principal); Z79.01 Long term (current) use of anticoagulants

== ENCOUNTER → 2016-11-07 | Outpatient (REF) | payer MEDICARE, OTHER ==
[2016-11-07 12:36] LABS: INR 1.98
== END ==
LOC: M LAB REF 12:15 → M SHH 12:15
PROVIDERS: ATTEND Nurse Practitioner Family
DX: Z79.01 Long term (current) use of anticoagulants (principal)

== ENCOUNTER → 2016-11-10 | Outpatient (REF) | payer MEDICARE, OTHER ==
[2016-11-10 13:55] LABS: INR 2.12
== END ==
LOC: M SHH 13:02
PROVIDERS: ATTEND Nurse Practitioner Family
DX: M17.12 Unilateral primary osteoarthritis, left knee (principal); Z79.01 Long term (current) use of anticoagulants

== ENCOUNTER → 2016-11-14 | Outpatient (REF) | payer MEDICARE, OTHER ==
[2016-11-14 13:06] LABS: INR 1.77
== END ==
LOC: M SHH 12:13
PROVIDERS: ATTEND Nurse Practitioner Family
DX: M17.12 Unilateral primary osteoarthritis, left knee (principal); Z79.01 Long term (current) use of anticoagulants

== ENCOUNTER → 2017-02-24 | Outpatient (REF) | payer MEDICARE, OTHER | LOC: M LAB REF 12:38 | PROVIDERS: ATTEND Internal Medicine | DX: N18.3 Chronic kidney disease, stage 3 (moderate) (principal) ==

== ENCOUNTER → 2017-03-01 | Outpatient (REF) | payer MEDICARE, OTHER ==
[2017-03-01 17:10] LABS: IONIZED CALCIUM 5.2 MG/DL (4.5-5.3)
[2017-03-01 19:54] LABS: TOTAL PROTEIN 7.7 GM/DL (6.4-8.2)
[2017-03-02 11:07] LABS: ALBUMIN 4.32 GM/DL (3.29-5.55); ALBUMIN % 56.1 % (55.8-66.1); GAMMA GLOBULIN % 15.9 % (11.1-18.8)
== END ==
LOC: M LAB REF 16:56
PROVIDERS: ATTEND Internal Medicine
DX: E83.52 Hypercalcemia (principal); I13.10 Hypertensive heart and chronic kidney disease without heart failure, with stage 1 through stage 4 chronic kidney disease, or unspecified chronic kidney disease

== ENCOUNTER → 2017-05-19 | Outpatient (CLI) | payer MEDICARE, BC, OTHER ==
[~2017-05-19] MED LIST changes: -COUM2.5T11 PO; +COUM2.5T17 PO; -METO-209 PO; +METO1TAB33 PO
--- NOTE | 2017-05-23 10:12 | SLEEPCENT ---
DATE OF PROCEDURE: 05/19/2017 REQUESTING PROVIDER: Avril Curry NP INTERPRETATION: Nocturnal polysomnography was performed for the titration of pressure therapy in this patient with a clinical diagnosis of obstructive sleep apnea syndrome, confirmatory home testing revealed a respiratory event index of 12.8. For titration, the patient was fit with a ResMed Mirage FX nasal mask of standard size, 4 cm of water pressure were applied to the circuit and the lights were extinguished. 7 hours and 37 minutes of data were reviewed. Of these, 298 minutes of sleep were identified. Sleep latency was mildly prolonged at 36 minutes. Rapid eye movement (REM) latency was prolonged at 245 minutes. Sleep architecture initially showed fragmentation with a period of wake between 12:30 and 1:45. Subsequently, progression improved. Architecture was best in the late portion of the test. Overall sleep efficiency was 68.4%. The patient's electrocardiogram (EKG) showed a sinus rhythm with occasional PVCs. Electroencephalogram (EEG) was mildly artifactual but showed no focal events and normal waveforms for awake and sleep. Respiratory events were fully palliated with a CPAP to a pressure of +6, with which the patient did enter REM sleep in the supine posture without significant respiratory event or oxygen desaturation. Limb leads showed significant activity throughout the test and limb movement arousal index was 14.5. IMPRESSION: 1. Obstructive sleep apnea syndrome (G47.33). 2. Periodic limb movement disorder (G47.61). Limb movement arousal index of 14.5 per hour. RECOMMENDATIONS: Nightly use of pressure therapy at 6 cm of water should be sufficient to treat the patient's respiratory events. Interventions to reduce the frequency or arousals from limb activity will likely be needed to optimize sleep.
== END ==
LOC: M SLEEP 19:44
PROVIDERS: ATTEND Nurse Practitioner Adult Health
DX: G47.33 Obstructive sleep apnea (adult) (pediatric) (principal)

== ENCOUNTER → 2017-05-22 | Outpatient (CLI) | payer MEDICARE, BC, OTHER ==
--- NOTE | 2017-05-22 14:30 | REP ---
PARATHYROID NUCLEAR SCINTIGRAPHY: With SPECT imaging. HISTORY: Hypercalcemia. TECHNIQUE: 25.9 mCi technetium 99m sestamibi is injected. 15-minute delay and 3-hour delayed planar images are acquired. In addition a SPECT acquisition is acquired. SCINTIGRAPHIC FINDINGS: The initial 15-minute delayed images demonstrate normal salivary and thyroid uptake. After the three hour delayed, thyroid uptake is washed out. There is no visible area of increased uptake in the thyroid bed or mediastinum to suggest a parathyroid adenoma. IMPRESSION: Negative parathyroid nuclear scintigraphy with SPECT. Signed by Luis Nix MD 05/22/2017 03:54 P
== END ==
LOC: M RAD 09:51
PROVIDERS: ATTEND Internal Medicine Nephrology
DX: E83.52 Hypercalcemia (principal)
CPT/HCPCS: 78070; 78803; A9500

== ENCOUNTER → 2017-08-10 | Outpatient (CLI) | payer MEDICARE, BC, OTHER ==
[~2017-08-10] MED LIST changes: +AMLO5TAB2 PO; +SENO8.6T5 PO
--- NOTE | 2017-08-10 12:30 | REP ---
Chest two views HISTORY: Preop Comparison: 10/05/2016 The lungs are clear. The heart is normal in size. The pulmonary vasculature is normal in appearance. The bony structure is intact. IMPRESSION: No acute disease. Signed by Narciso Jc MD 08/10/2017 12:21 P
[2017-08-10 12:39] LABS: MEAN CORPUSCULAR HEMOGLOBIN 30.8 pg (27.0-33.0); MEAN CORPUSCULAR HGB CONC 33.9 g/dl (32.0-36.5); MEAN CORPUSCULAR VOLUME 91.1 fl (80.0-96.0); PLATELET COUNT, AUTOMATED 255 10^3/uL (150-450); RED CELL DISTRIBUTION WIDTH 11.9 % (11.5-14.5); WHITE BLOOD COUNT 7.2 10^3/uL (4.0-10.0)
[2017-08-10 13:00] LABS: ALBUMIN 4.1 GM/DL (3.2-5.2); ALBUMIN/GLOBULIN RATIO 1.17 (1.00-1.93); BILIRUBIN,TOTAL 0.5 MG/DL (0.2-1.0); CALCIUM LEVEL 10.6 MG/DL (8.8-10.2); CREATININE FOR GFR 1.42 MG/DL (0.55-1.02); GLOMERULAR FILTRATION RATE 39.2 (>45); TOTAL PROTEIN 7.6 GM/DL (6.4-8.2)
[2017-08-10 13:06] LABS: ERYTHROCYTE SEDIMENTATION RATE 29 mm/hr (0-30)
--- NOTE | 2017-08-10 13:20 | ECGEPIP ---
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
== END ==
LOC: M ADMPAT 10:29
PROVIDERS: ATTEND Orthopaedic Surgery
DX: M17.11 Unilateral primary osteoarthritis, right knee (principal)

== ENCOUNTER 2017-08-25 05:59 | Inpatient (IN) | payer MEDICARE, BC, OTHER ==
[2017-08-10 11:44] VITALS: BP 126/84
--- NOTE | 2017-08-16 09:52 | HPE ---
DATE OF ADMISSION: 08/25/2017 ATTENDING PHYSICIAN: Corona Arreguin MD CHIEF COMPLAINT: Right knee pain and stiffness. HISTORY: Patient is a 67-year-old female with progressively worsening right knee pain and stiffness. She failed to improve with conservative measures. She continues to have symptoms with weightbearing activities and activities of daily living (ADL). She has consented for an elective right total knee arthroplasty with Dr. Arreguin. Medical optimization is pending with Dr. Sewell. PAST MEDICAL HISTORY: Stage III chronic kidney disease. Hypertension. Aortic valve disorder. Obesity. Gastroesophageal reflux disease (GERD). Hyperlipidemia. PAST SURGICAL HISTORY: Bilateral bunionectomies. Tubal ligation. Cholecystectomy. Tonsillectomy and adenoidectomy. Uvulopalatopharyngoplasty (UPPP). Hernia repair. MEDICATIONS: - Pepcid 20 mg daily - magnesium 400 mg daily - Flonase 50 mcg daily - spironolactone 25 mg daily - Celexa 10 mg daily - Toprol XL 100 mg daily - Lipitor 10 mg daily - chlorthalidone 25 mg daily - baby aspirin daily ALLERGIES: No known drug allergies. SOCIAL HISTORY: Patient is retired. She does not use tobacco products. She occasionally drinks alcohol. FAMILY HISTORY: Noncontributory. REVIEW OF SYSTEMS: Patient denies fevers, chills, nausea, vomiting, or diarrhea. She denies chest pain, shortness of breath, headaches, or abdominal pain. She continues to have right knee pain and stiffness with weightbearing activities and activities of daily living. PHYSICAL EXAMINATION: VITAL SIGNS: Height 61.5 inches. Weight 234 pounds. Temperature 96.5. Blood pressure 142/80. Heart rate 72. Respirations 20. GENERAL: Patient is a well nourished, well developed female who appears to be in no apparent distress. NECK: Supple without lymphadenopathy. HEART: Regular rate and rhythm. LUNGS: Clear to auscultation bilaterally. ABDOMEN: Bowel sounds present. Abdomen is soft and nontender to palpation. MUSCULOSKELETAL: Evaluation of the right knee does show a very small area of ecchymosis medially. Her skin is intact. There is no real tenderness to palpation. She can extend to almost 0 degrees and flex to approximately 100 degrees. Right lower extremity strength is normal. No hip irritability was elicited with range of motion. Calf is soft, nontender to palpation with no palpable cords noted. Distally, she is neurovascularly intact. LABORATORY DATA: EKG sinus bradycardia with first degree AV block. Left axis deviation. Chest x-ray no acute distress. Urinalysis positive for 1+ leukocyte esterase and 4 red blood cells per high powered field. Urine culture reveals no growth. Nasal and sinus culture normal christi. Comprehensive metabolic profile: Fasting glucose 98, BUN elevated at 26, creatinine for GFR elevated at 1.42, glomerular filtration rate (GFR) decreased at 39.2, sodium 140, potassium 5, chloride 102, carbon dioxide 31, anion gap decreased at 7, calcium elevated at 10.6, AST 14, ALT 22, alkaline phosphatase 100, total bilirubin 0.5, total protein 7.6, albumin 4.1, albumin/globulin ratio 1.17. Complete blood count: WBC 7.1, RBC 4.25, hemoglobin 13.1, hematocrit 38.7, platelets 255, erythrocyte sedimentation rate 29. ASSESSMENT: Right knee osteoarthritis (OA) with x-rays notable for end stage degenerative changes. PLAN: Patient has consented for an elective right total knee arthroplasty with Dr. Arreguin. Medical optimization pending with Dr. 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 JANETT
[2017-08-25] VITALS (7 sets, daily range): BP systolic 102–130; BP diastolic 53–77
[~2017-08-25] VITALS: Ht 154.9 cm; Wt 112.2 kg
[2017-08-25] MEDS ORDERED: LR 1,000 ML IV ONE (06:15)
[2017-08-25] MEDS ORDERED: LR 1,000 ML IV SCH ×2 (06:15→10:30)
[2017-08-25] MEDS ORDERED: MIDAZOLAM INJ 2 MG/2 ML VIAL (J2250) As Ordered ONE ×2 (06:49→08:11)
[2017-08-25] MEDS ORDERED: fentaNYL 100 MCG/2 ML INJECTION (J3010) As Ordered ONE ×3 (06:49→10:13)
[2017-08-25] MEDS ORDERED: EPINEPHrine INJ 1 MG/ML 1ML AMP As Ordered ONE (07:10)
[2017-08-25] MEDS ORDERED: TRANEXAMIC ACID 100 MG/ML 10ML VIAL As Ordered ONE (07:10)
[2017-08-25] MEDS ORDERED: ceFAZolin 1GM INJ (J0690 PER 500MG) As Ordered ONE (07:11)
[2017-08-25] MEDS: MIDAZOLAM INJ 2 MG/2 ML VIAL (J2250) IV PRN ×2 (07:28→07:29)
[2017-08-25] MEDS ORDERED: BUPIVACAINE LIPOSOME/PF 1.3% 20 ML VIAL (13.3MG/ML)(EXPAREL) As Ordered ONE (07:53)
[2017-08-25] MEDS ORDERED: PROPOFOL 200 MG/20 ML VIAL As Ordered ONE (08:11)
[2017-08-25] MEDS ORDERED: LIDOCAINE 2% INJ 100 MG/5 ML SDV (FOR ANES.) As Ordered ONE ×2 (08:11→08:33)
[2017-08-25] MEDS ORDERED: ROCURONIUM BROMIDE 50 MG/5 ML VIAL As Ordered ONE ×2 (08:11→08:33)
[2017-08-25] MEDS ORDERED: fentaNYL 100 MCG/2 ML INJECTION (J3010) IV PRN (08:15)
[2017-08-25] MEDS ORDERED: ePHEDrine SULFATE 25 MG/5 ML(5MG/ML) SYRINGE As Ordered ONE ×2 (08:18→08:51)
[2017-08-25] MEDS ORDERED: NEOSTIGMINE 10 MG/10 ML VIAL (J2710) As Ordered ONE (08:27)
[2017-08-25] MEDS ORDERED: GLYCOPYRROLATE INJ 0.2 MG/ML 2 ML VIAL As Ordered ONE (08:27)
[2017-08-25] MEDS ORDERED: ONDANSETRON 4MG/2ML VIAL (J2405) As Ordered ONE (08:27)
[2017-08-25] MEDS ORDERED: KETOROLAC 60 MG/2 ML VIAL (J1885) As Ordered ONE (08:27)
[2017-08-25] MEDS ORDERED: ROPIvacaine 0.5% 30 ML INJECTION (J2795 PER 1MG) ONE (09:45)
[2017-08-25] MEDS ORDERED: LIDOCAINE 1% MDV 20ML VIAL ONE (09:45)
[2017-08-25] MEDS ORDERED: dexameTHASONE 10 MG/1 ML VIAL PRES.FREE (J1100) ONE (09:45)
[2017-08-25] MEDS ORDERED: MORPHINE 1MG/ML IN 0.9% NACL 100ML IV BAG As Ordered ONE (10:13)
[2017-08-25] MEDS: fentaNYL 100 MCG/2 ML INJECTION (J3010) IV PRN ×4 (10:15→10:30)
[2017-08-25] MEDS ORDERED: ONDANSETRON 4MG/2ML VIAL (J2405) IV PRN ×3 (10:30→10:45)
[2017-08-25] MEDS ORDERED: MORPHINE 10 MG/ML 1ML VIAL IV PRN (10:30)
[2017-08-25] MEDS ORDERED: FLEET ENEMA PR PRN (10:45)
[2017-08-25] MEDS ORDERED: EPIDURAL/PCA KEYS XX PRN (10:45)
[2017-08-25] MEDS ORDERED: NALOXONE INJ 0.4 MG/1 ML VIAL (J2310) IV PRN (10:45)
[2017-08-25] MEDS ORDERED: ACETAMINOPHEN TAB 650MG DOSE (2X325MG) PO PRN (10:45)
[2017-08-25] MEDS ORDERED: NALBUPHINE HCL 10 MG/ML AMP (J2300) IV PRN (10:45)
[2017-08-25] MEDS ORDERED: diphenhydrAMINE INJ 50MG/ML VIAL (J1200) IV PRN (10:45)
[2017-08-25] MEDS ORDERED: MORPHINE 1MG/ML IN 0.9% NACL 100ML IV BAG IV PRN (10:45)
[2017-08-25] MEDS: LR 1,000 ML IV SCH (14:00)
--- NOTE | 2017-08-25 16:24 | CR ---
DATE OF CONSULTATION: 08/25/2017 PRIMARY CARE PROVIDER: Dylan Sewell Jr., MD CONSULTATION REPORT FOR: Corona Arreguin MD Hospitalist who will be taking care of the patient tomorrow will be Dr. Jaciel Alexandre. REASON FOR CONSULTATION: Medical management. CHIEF COMPLAINT: Right knee pain. HISTORY OF PRESENT ILLNESS: This is a 67-year-old female patient with underlying medical history of chronic kidney disease (CKD) stage III, hypertension, aortic valve disorder, obesity, gastroesophageal reflux disease (GERD), dyslipidemia, obstructive sleep apnea, on continuous positive airway pressure (CPAP) at home, admitted under orthopedic service for elective right knee replacement by Dr. Corona Arreguin. Medical optimization done by Dr. Sewell. Patient currently in the recovery status for surgery, currently comfortable, in no acute distress. Denies any chest pain, pressure, discomfort, fevers or chills, shortness of breath. Patient does report right knee pain from the surgery, much better after medication. ALLERGIES: No known drug allergies. PAST MEDICAL HISTORY: 1. Obstructive sleep apnea. 2. CKD stage III. 3. Hypertension. 4. Aortic valve disorder. 5. Obesity. 6. GERD. 7. Dyslipidemia. PAST SURGICAL HISTORY: 1. Bilateral bunionectomy. 2. Tubal ligation. 3. Cholecystectomy. 4. Tonsillectomy. 5. Adenoidectomy. 6. Uvulopalatopharyngoplasty. 7. Hernia repair. SOCIAL HISTORY: Patient is retired. Denies smoking. Lives at home. Occasional alcohol use. FAMILY HISTORY: Denies family history of cancer. REVIEW OF SYSTEMS: Negative except for right knee pain from surgery. HOME MEDICATIONS: - acetaminophen 650 mg every 8 hours - Norvasc 5 mg by mouth daily - aspirin 81 mg by mouth nightly - Lipitor 10 mg by mouth nightly - Pepcid 20 mg by mouth twice a day as needed - Flonase inhalation 50 mcg twice a day - magnesium oxide 400 mg by mouth nightly - metoprolol succinate 100 mg by mouth daily - multivitamin one tablet by mouth daily - Zofran 4 mg by mouth every 4 hours - Senna 8.6 by mouth nightly - spironolactone 25 mg by mouth every morning PHYSICAL EXAMINATION: GENERAL: Patient alert, comfortable, in no acute distress. HEENT: Normocephalic, atraumatic. PULMONARY: Bilateral clear to auscultation. CARDIAC: Regular rate and rhythm, normal S1, S2. ABDOMEN: Soft, nontender. Positive bowel sounds. EXTREMITIES: Right lower extremity, around the knee area, dressing and wraps intact. Able to move bilateral foot. Dorsalis pedis/posterior tibial (DP/PT) pulses intact. No edema bilateral lower extremities. LABORATORY DATA: Pending. ASSESSMENT AND PLAN: This is a 67-year-old female patient with underlying medical history of chronic kidney disease (CKD) stage III, hypertension, aortic valve disease, obesity, obstructive sleep apnea, gastroesophageal reflux disease (GERD), dyslipidemia, admitted to the hospital for elective right total knee arthroplasty by Dr. Arreguin. Hospitalist consulted for medical management. 1. Osteoarthritis status post right knee arthroplasty by Dr. Arreguin. Perioperative management, pain regimen, deep venous thrombosis (DVT) prophylaxis, activity status, and physical therapy as per orthopedics. Patient on Coumadin for deep venous thrombosis (DVT) prophylaxis. Bowel regimen has been added. 2. Obstructive sleep apnea. Obstructive sleep apnea (ALISIA) protocol. Continuous positive airway pressure (CPAP). May use home continuous positive airway pressure (CPAP). Continue to monitor. 3. Chronic kidney disease (CKD) stage III. Monitor kidney function. Continue current medication. 4. Hypertension. Will followup morning labs. Norvasc and spironolactone on hold. Restart tomorrow if patient's labs are okay. Continue beta antoine. Monitor blood pressure. IV fluids ordered by orthopedics. 5. Aortic valve disease. Outpatient followup. 6. Obesity. Complicating care. 7. Gastroesophageal reflux disease (GERD). Continue proton pump inhibitor (PPI). 8. Dyslipidemia. Continue statin. 9. Deep venous thrombosis (DVT) prophylaxis. Per orthopedics. Patient on Coumadin. Followup INR. DISPOSITION: Pending orthopedic team.
[2017-08-25] MEDS ORDERED: WARFARIN SOD 5 MG TAB PO ONE (17:00)
[2017-08-25] MEDS: FLUTICASONE PROP 0.05% NASAL SPRAY 16 GM (FLONASE) SCH (20:43)
[2017-08-25] MEDS: SENOKOT S TAB PO SCH (20:43)
[2017-08-25] MEDS: ATORVASTATIN 10 MG TAB PO SCH (20:43)
[2017-08-25] MEDS: FAMOTIDINE 20 MG TAB PO PRN (23:38)
[2017-08-26] MEDS: LR 1,000 ML IV SCH (00:05)
[2017-08-26 02:00] VITALS: BP 131/62
[2017-08-26 06:00] VITALS: BP 141/81
[2017-08-26 06:23] LABS: MEAN CORPUSCULAR HEMOGLOBIN 30.9 pg (27.0-33.0); MEAN CORPUSCULAR HGB CONC 33.8 g/dl (32.0-36.5); MEAN CORPUSCULAR VOLUME 91.4 fl (80.0-96.0); PLATELET COUNT, AUTOMATED 207 10^3/uL (150-450); RED CELL DISTRIBUTION WIDTH 11.9 % (11.5-14.5); WHITE BLOOD COUNT 15.7 10^3/uL (4.0-10.0)
[2017-08-26 06:37] LABS: INR 1.1
[2017-08-26] MEDS ORDERED: PERCOCET 5MG/325MG TAB PO PRN (06:45)
[2017-08-26] MEDS ORDERED: ONDANSETRON 4 MG TAB (S0181) PO PRN (06:45)
[2017-08-26 07:04] LABS: CALCIUM LEVEL 9.5 MG/DL (8.8-10.2); CREATININE FOR GFR 1.58 MG/DL (0.55-1.02); GLOMERULAR FILTRATION RATE 34.6 (>45); POTASSIUM SERUM 4.7 MEQ/L (3.5-5.1)
--- NOTE | 2017-08-26 09:31 | REP ---
Post op right knee two views: There is a total knee arthroplasty with the components tightly applied and in satisfactory positions alignment. Skin bassam are incidentally identified. No Signed by Marshall Jeter MD 08/26/2017 09:23 A
[2017-08-26] MEDS: PERCOCET 5MG/325MG TAB PO PRN ×3 (09:35→21:15)
[2017-08-26 10:00] VITALS: BP 116/74
[2017-08-26] MEDS: SPIRONOLACTONE 25 MG TAB PO SCH (10:00)
[2017-08-26] MEDS: MOM 30ML SUSPENSION UDC PO SCH (10:00)
[2017-08-26] MEDS: SENOKOT S TAB PO SCH ×2 (10:01→21:07)
[2017-08-26] MEDS: amLODIPine 5 MG TAB PO SCH (10:01)
[2017-08-26] MEDS: METOPROLOL SUCC (TopROL XL) 100MG *XL* TAB PO SCH (10:01)
[2017-08-26] MEDS: OCUVITE 1 TAB PO SCH (10:01)
[2017-08-26] MEDS: MIRALAX *UNIT DOSE* 17GM PACKET PO SCH (10:01)
[2017-08-26] MEDS: FLUTICASONE PROP 0.05% NASAL SPRAY 16 GM (FLONASE) SCH ×2 (10:02→21:06)
--- NOTE | 2017-08-26 13:52 | IPNPDOC ---
Subjective Date Seen The patient was seen on 08/26/17. Subjective Chief Complaint/HPI The patient is a 67-year-old female admitted with a reason for visit of Arthritis Right Knee. Events since last encounter Patient seen and examined at the bedside. No acute overnight events noted. Objective Physical Examination General Exam: Positive: Alert, Cooperative, No Acute Distress ENT Exam: Positive: Atraumatic, Mucous membr. moist/pink Neck Exam: Negative: JVD Chest Exam: Positive: Clear to auscultation, Normal air movement Heart Exam: Positive: Rate Normal, Normal S1, Normal S2 Abdomen Exam: Positive: Soft, Negative: Tenderness Extremity Exam: Positive: Other (right knee noted to have surgical dressing. ROM limited 2/2 recent dressing. ) Psych Exam: Positive: Oriented x 3 Assessment /Plan Plan/VTE VTE Prophylaxis Ordered?: Yes Plan s/p Right Knee Replacement Pain mgmt, DVT Prophylaxis as per Orthopedic surgery CKD Stage III Serum Cr appears to be at baseline Hypertension, stable Cont current regimen Morbid Obesity Complicated medical care GERD Continue PPI Dyslipidemia continue statin DVT prophylaxis As per orthopedic surgery VS, I&O, 24H, Fishbone Vital Signs/I&O Vital Signs Date Time Temp Pulse Resp B/P (MAP) Pulse Ox O2 Delivery O2 Flow Rate FiO2 08/26/17 10:01 89 141/81 08/26/17 06:00 96.8 14 98 Nasal Cannula 2.0 Laboratory Data 24H LABS Laboratory Tests 2 08/26/17 05:58: Nucleated Red Blood Cells % (auto) 0.0, Prothrombin Time 14.4, Prothromb Time International Ratio 1.10, Anion Gap 8, Glomerular Filtration Rate 34.6L, Blood Urea Nitrogen 37H, Creatinine 1.58H, Sodium Level 138, Potassium Level 4.7, Chloride Level 104, Carbon Dioxide Level 26, Calcium Level 9.5, Magnesium Level 2.0 CBC/BMP Laboratory Tests 08/26/17 05:58 Red Blood Count 3.24 L, Mean Corpuscular Volume 91.4, Mean Corpuscular Hemoglobin 30.9, Mean Corpuscular Hemoglobin Concent 33.8, Red Cell Distribution Width 11.9, Calcium Level 9.5 LUIS M OSWALD MD Aug 26, 2017 13:52
[2017-08-26 14:00] VITALS: BP 116/73
--- NOTE | 2017-08-26 15:35 | RO ---
DATE OF PROCEDURE: 08/25/2017 PREOPERATIVE DIAGNOSIS: Right knee osteoarthritis. POSTOPERATIVE DIAGNOSIS: Right knee osteoarthritis. PROCEDURE: Right total knee arthroplasty using a PFC rotating platform, posterior stabilized, size 3 femur, size 2.5 tibial tray, 10 polyethylene, 32 patellar button. SURGEON: Dr. Corona Arreguin PAPER [employer] MACHINE TENDER: Masoud Engle ANESTHESIA: General. ESTIMATED BLOOD LOSS: Less than 50 mL. COMPLICATIONS: None. INDICATIONS: This is a 67-year-old with morbid obesity, body mass index (BMI) of about 40 who has had gradually worsening right knee pain. She has been through a previous left knee replacement and wished to go ahead with a right knee replacement. She understood the nature of this, the risks of bleeding, infection, damage to nerves, vessels, persistent pain, wear, loosening, blood clots, medical problems, among others. Preop medical clearance was obtained. DESCRIPTION OF PROCEDURE: The patient was taken to operating room and placed in the supine position after general anesthesia was induced. The right knee was prepped and draped in the usual sterile fashion. A time-out was performed, the tourniquet was inflated. I then created a longitudinal incision over the anterior aspect of the knee and sharp dissection was carried down through the subcutaneous tissue. I performed a medial parapatellar arthrotomy per routine, everted the patella, flexed the knee up. I removed some of the fat pad for visualization. I then used the canal initiating reamer on the femoral side followed by the intramedullary guide set at 10 mm cut and 5 mm of valgus. This fit quite nicely. The loan officer assistant pinned this in place on the end of the femur, and the distal femoral cut was made while I protected soft tissues. The sizing guide was then used, and it was sized to be a size 3 femur. The pin holes were made in the end of the femur with the external rotation guide and then secured the 4-in-1 cutting block and made the remaining cuts. I did protect soft tissues at all times. I then prepared the tibia. The tibial alignment guide was placed and this was pinned in place with the 0 degree block because I anticipate using a posterior stabilized knee due to her deformity and flexion contracture. Of note is that we did also take 2 mm extra off the end of the femur to try to help correct the flexion contracture. I then used the service person to remove soft tissue and osteophytes from either side. There were multiple loose bodies and enlarged osteophytes in the back of the knee. I then used the box cutting device, pinned this in place and made the remaining cuts. I also had measured with the spacer blocks using a 10 mm spacer block, and it felt like we had an appropriate cut in flexion and extension. At this point, I prepared the tibial tray. A size 2.5 fit appropriately, it was pinned in place. I drilled, broached and placed the trial components. And I felt like when this trial reduction was performed, the femur fit nicely. However, I was not able to get quite full extension and had excellent stability and tissue balance in flexion but in extension, it seemed a little tight, so I decided to take 2 mm off the end of the femur. So, the guides were then replaced, and I removed an additional 2 mm, made the chamfer cuts again and excellent cuts were noted. I also had deepened the cut for the box portion of the component. The trial components were then replaced and excellent fit and alignment were noted, and I was able to get full extension and excellent stability in extension and flexion. I then prepared the patella, freehand cutting about 6 or 7 mm of bone off and then sized to be a 32. The drill holes were placed. The trial components were removed. I injected half of the Exparel solution around the capsule and periosteum. I irrigated the bony surfaces copiously as the loan officer assistant prepared the bone cement in the modern technique. I then cemented on the tibial component, impacted it in place, removed excess bone cement. We cement on the femoral component, removed excess bone cement, placed the polyethylene, brought the knee out in extension, made sure there was no excess bone cement to be removed. Each surface had been irrigated and dried carefully. I also cemented on the patella in the same fashion, holding in place with a clamp, removing excess bone cement. I then placed the remaining Exparel solution around the capsule and deep tissues in the knee, placed the TXA solution in the knee and then did a final copious irrigation. Deep layer was reapproximated with #1 Vicryl suture in interrupted fashion followed by a running Stratafix suture starting in the midportion and working in both directions. Excellent watertight closure was noted. I irrigated the subcutaneous tissue, closed the subcu with #2-0 Vicryl with the loan officer assistant's help and the skin with bassam. Sterile dressing was applied. Tourniquet was deflated. She was taken to recovery room in stable condition. There were no known complications. The plan be routine postop. The loan officer assistant was instrumental in holding retractors, making the distal femoral cut and mixing the cement and assisting in wound closure. This was coded as an unusually difficult procedure because the patient had a body mass index (BMI) of over 40, which made the process much more difficult and the surgery difficult, the dissection and exposure was more difficult and certainly this would predict a higher complication rate with her BMI. The patient will be taken to recovery room and admitted to the floor postoperatively. We are going to contact the hospitalists for medical management, and we are going to ask them whether they feel that the patient should go to progressive care unit (PCU) for observation or [facility] for monitoring there. She does have a history of obstructive sleep apnea and does have a continuous positive airway pressure (CPAP) machine.
[2017-08-26] MEDS ORDERED: WARFARIN SOD 5 MG TAB PO ONE (17:00)
[2017-08-26 18:00] VITALS: BP 125/73
[2017-08-26] MEDS: FAMOTIDINE 20 MG TAB PO PRN (21:07)
[2017-08-26] MEDS: ATORVASTATIN 10 MG TAB PO SCH (21:07)
[2017-08-26 22:00] VITALS: BP 122/76
[2017-08-27] MEDS: PERCOCET 5MG/325MG TAB PO PRN ×5 (01:17→22:06)
[2017-08-27 06:00] VITALS: BP 124/64
[2017-08-27 06:46] LABS: MEAN CORPUSCULAR HEMOGLOBIN 30.3 pg (27.0-33.0); MEAN CORPUSCULAR HGB CONC 32.3 g/dl (32.0-36.5); PLATELET COUNT, AUTOMATED 184 10^3/uL (150-450); RED CELL DISTRIBUTION WIDTH 12.1 % (11.5-14.5); WHITE BLOOD COUNT 10.5 10^3/uL (4.0-10.0)
[2017-08-27 06:59] LABS: INR 1.35
[2017-08-27 07:09] LABS: CALCIUM LEVEL 9.4 MG/DL (8.8-10.2); CREATININE FOR GFR 1.5 MG/DL (0.55-1.02); GLOMERULAR FILTRATION RATE 36.8 (>45); MAGNESIUM LEVEL 2.2 MG/DL (1.8-2.4); POTASSIUM SERUM 5.1 MEQ/L (3.5-5.1)
[2017-08-27] MEDS: METOPROLOL SUCC (TopROL XL) 100MG *XL* TAB PO SCH (09:00)
[2017-08-27] MEDS: SPIRONOLACTONE 25 MG TAB PO SCH (09:00)
[2017-08-27] MEDS: OCUVITE 1 TAB PO SCH (09:00)
[2017-08-27] MEDS: amLODIPine 5 MG TAB PO SCH (09:00)
[2017-08-27] MEDS: FLUTICASONE PROP 0.05% NASAL SPRAY 16 GM (FLONASE) SCH ×2 (09:00→20:31)
[2017-08-27] MEDS: MIRALAX *UNIT DOSE* 17GM PACKET PO SCH (09:00)
[2017-08-27] MEDS: MOM 30ML SUSPENSION UDC PO SCH (09:00)
[2017-08-27] MEDS: SENOKOT S TAB PO SCH ×2 (09:00→20:31)
[2017-08-27 14:00] VITALS: BP 146/78
[2017-08-27] MEDS ORDERED: WARFARIN SOD 7.5 MG TAB PO ONE (17:00)
[2017-08-27] MEDS: ATORVASTATIN 10 MG TAB PO SCH (20:31)
[2017-08-27 22:00] VITALS: BP 116/64
[2017-08-28] MEDS: PERCOCET 5MG/325MG TAB PO PRN ×3 (03:41→18:48)
[2017-08-28 06:00] VITALS: BP 134/69
[2017-08-28 07:02] LABS: MEAN CORPUSCULAR HEMOGLOBIN 30.8 pg (27.0-33.0); MEAN CORPUSCULAR HGB CONC 33.2 g/dl (32.0-36.5); MEAN CORPUSCULAR VOLUME 92.7 fl (80.0-96.0); PLATELET COUNT, AUTOMATED 198 10^3/uL (150-450); RED CELL DISTRIBUTION WIDTH 11.9 % (11.5-14.5); WHITE BLOOD COUNT 8.8 10^3/uL (4.0-10.0)
[2017-08-28 07:22] LABS: INR 1.73
[2017-08-28 07:28] LABS: CALCIUM LEVEL 9.6 MG/DL (8.8-10.2); CREATININE FOR GFR 1.37 MG/DL (0.55-1.02); GLOMERULAR FILTRATION RATE 40.8 (>45); MAGNESIUM LEVEL 2.4 MG/DL (1.8-2.4); POTASSIUM SERUM 4.7 MEQ/L (3.5-5.1)
[2017-08-28] MEDS ORDERED: PERC5TAB12 PO (07:34)
[2017-08-28] MEDS ORDERED: COUM2.5T17 PO (07:34)
[2017-08-28] MEDS ORDERED: INFLUENZA VIRUS VACCINE HIGH DOSE 0.5 ML SYRINGE (90662) IM ONE (09:00)
[2017-08-28] MEDS: MOM 30ML SUSPENSION UDC PO SCH (09:00)
[2017-08-28] MEDS: FLUTICASONE PROP 0.05% NASAL SPRAY 16 GM (FLONASE) SCH ×2 (09:00→20:52)
[2017-08-28] MEDS: OCUVITE 1 TAB PO SCH (09:00)
[2017-08-28] MEDS: MIRALAX *UNIT DOSE* 17GM PACKET PO SCH (09:00)
[2017-08-28] MEDS: SPIRONOLACTONE 25 MG TAB PO SCH (09:00)
[2017-08-28] MEDS: METOPROLOL SUCC (TopROL XL) 100MG *XL* TAB PO SCH (09:00)
[2017-08-28] MEDS: amLODIPine 5 MG TAB PO SCH (09:00)
[2017-08-28] MEDS: SENOKOT S TAB PO SCH ×2 (09:00→20:52)
--- NOTE | 2017-08-28 13:29 | IPNPDOC ---
Subjective Date Seen The patient was seen on 08/28/17. Subjective Chief Complaint/HPI The patient is a 67-year-old female admitted with a reason for visit of Arthritis Right Knee. Events since last encounter Patient seen and examined at the bedside. Denies any acute complaints at this time. Objective Physical Examination General Exam: Positive: Alert, Cooperative, No Acute Distress ENT Exam: Positive: Atraumatic, Mucous membr. moist/pink Neck Exam: Negative: JVD Chest Exam: Positive: Clear to auscultation, Normal air movement Heart Exam: Positive: Rate Normal, Normal S1, Normal S2 Abdomen Exam: Positive: Soft, Negative: Tenderness Extremity Exam: Positive: Other (right knee noted to have surgical dressing. ROM limited 2/2 recent dressing. ) Psych Exam: Positive: Oriented x 3 Assessment /Plan Plan/VTE VTE Prophylaxis Ordered?: Yes Plan s/p Right Knee Replacement Pain mgmt, DVT Prophylaxis as per Orthopedic surgery CKD Stage III Serum Cr appears to be at baseline Hypertension, stable Cont current regimen Morbid Obesity Complicated medical care GERD Continue PPI Dyslipidemia continue statin DVT prophylaxis As per orthopedic surgery VS, I&O, 24H, Rodríguezbone Vital Signs/I&O Vital Signs Date Time Temp Pulse Resp B/P (MAP) Pulse Ox O2 Delivery O2 Flow Rate FiO2 08/28/17 12:01 Room Air 08/28/17 09:59 18 08/28/17 09:00 60 134/69 08/28/17 06:00 98.3 98 08/26/17 06:00 2.0 Laboratory Data 24H LABS Laboratory Tests 2 08/28/17 06:29: Nucleated Red Blood Cells % (auto) 0.0, Prothrombin Time 20.8H, Prothromb Time International Ratio 1.73, Anion Gap 7L, Glomerular Filtration Rate 40.8L, Blood Urea Nitrogen 28H, Creatinine 1.37H, Sodium Level 138, Potassium Level 4.7, Chloride Level 103, Carbon Dioxide Level 28, Calcium Level 9.6, Magnesium Level 2.4 CBC/BMP Laboratory Tests 08/28/17 06:29 Red Blood Count 3.28 L, Mean Corpuscular Volume 92.7, Mean Corpuscular Hemoglobin 30.8, Mean Corpuscular Hemoglobin Concent 33.2, Red Cell Distribution Width 11.9, Calcium Level 9.6 LUIS M OSWALD MD Aug 28, 2017 13:29
[2017-08-28] MEDS ORDERED: WARFARIN SOD 5 MG TAB PO ONE (17:00)
[2017-08-28] MEDS: ATORVASTATIN 10 MG TAB PO SCH (20:52)
[2017-08-28 22:00] VITALS: BP 113/71
[2017-08-29 06:00] VITALS: BP 131/75
[2017-08-29 07:02] LABS: CALCIUM LEVEL 9.7 MG/DL (8.8-10.2); CREATININE FOR GFR 1.5 MG/DL (0.55-1.02); GLOMERULAR FILTRATION RATE 36.8 (>45); MAGNESIUM LEVEL 2.7 MG/DL (1.8-2.4); MEAN CORPUSCULAR HEMOGLOBIN 31.1 pg (27.0-33.0); MEAN CORPUSCULAR HGB CONC 33.9 g/dl (32.0-36.5); MEAN CORPUSCULAR VOLUME 91.9 fl (80.0-96.0); PLATELET COUNT, AUTOMATED 216 10^3/uL (150-450); POTASSIUM SERUM 4.7 MEQ/L (3.5-5.1); RED CELL DISTRIBUTION WIDTH 11.9 % (11.5-14.5); WHITE BLOOD COUNT 7.4 10^3/uL (4.0-10.0)
[2017-08-29 07:07] LABS: INR 1.79
[2017-08-29] MEDS: MIRALAX *UNIT DOSE* 17GM PACKET PO SCH (09:37)
[2017-08-29] MEDS: OCUVITE 1 TAB PO SCH (09:37)
[2017-08-29] MEDS: amLODIPine 5 MG TAB PO SCH (09:38)
[2017-08-29] MEDS: MOM 30ML SUSPENSION UDC PO SCH (09:38)
[2017-08-29] MEDS: SENOKOT S TAB PO SCH (09:38)
[2017-08-29 09:39] VITALS: BP 131/75
[2017-08-29] MEDS: PERCOCET 5MG/325MG TAB PO PRN ×2 (09:39→13:05)
[2017-08-29] MEDS: FLUTICASONE PROP 0.05% NASAL SPRAY 16 GM (FLONASE) SCH (09:39)
[2017-08-29] MEDS: SPIRONOLACTONE 25 MG TAB PO SCH (09:39)
[2017-08-29] MEDS: METOPROLOL SUCC (TopROL XL) 100MG *XL* TAB PO SCH (09:39)
[2017-08-29] MEDS ORDERED: INFLUENZA VIRUS VACCINE HIGH DOSE 0.5 ML SYRINGE (90662) IM ONE (10:00)
[2017-08-29] MEDS ORDERED: SENN-23 PO (11:17)
--- NOTE | 2017-08-29 14:29 | IPN ---
DATE OF SERVICE: 08/29/2017 The patient seen and examined. No acute events overnight. Denies any chest pain, pressure or discomfort, fevers or chills. Currently comfortable. Participating with physical therapy. Has not yet had a bowel movement, but is passing gas. Tolerating oral. VITAL SIGNS: Temperature 98.5. Pulse 79. Respirations 18. Blood pressure 131/75. Pulse oximetry 97% on room air. LABORATORY: WBC 7.4, H/H 10.8/31.9, platelets 216. Chemistry with sodium 137, potassium 4.7, chloride 100, bicarbonate 32, BUN 27, creatinine 1.5. PHYSICAL EXAMINATION: GENERAL: Patient alert, comfortable, in no acute distress. HEENT: Normocephalic, atraumatic. PULMONARY: Bilateral clear to auscultation. CARDIAC: Regular, S1 and S2. ABDOMEN: Soft. Nontender. Positive bowel sounds. EXTREMITIES: Right knee dressing noted clean, dry and intact. PULSES: Peripheral pulses intact. ASSESSMENT AND PLAN: This is a 67-year-old female patient with underlying medical history of obstructive sleep apnea, chronic kidney disease (CKD) stage 3, hypertension, aortic valve disorder, obesity, gastroesophageal reflux disease (GERD), dyslipidemia, admitted under orthopedics for right knee replacement. PROBLEM: 1. Status post right knee replacement. Pain management, deep vein thrombosis (DVT) prophylaxis, activity status, physical therapy as per orthopedics. Bowel regimen prescribed. Patient on Coumadin for anticoagulation. Followup INR. 2. CKD Stage 3. BUN and creatinine appears to be at baseline. Continue to monitor. 3. Hypertension. Continue blood pressure medications as ordered. 4. Obesity. Complicating care. 5. GERD. Continue proton pump inhibitor (PPI). 6. Dyslipidemia. Continue statin. 7. Obstructive sleep apnea. May use home CPAP. ALISIA protocol. 8. Deep vein thrombosis prophylaxis. As per orthopedics. Patient will be placed on Coumadin. Followup INR. 9. Disposition. As per orthopedic team, pending physical therapy.
[2017-08-29] MEDS ORDERED: SENOKOT S TAB PO SCH (21:00)
== END 2017-08-29 15:15 | disposition home health service (06) | DRG 470 ==
LOC: M OR 05:59 → M MS5PR 11:05
PROVIDERS: ADMIT Orthopaedic Surgery; ATTEND Orthopaedic Surgery
PROC: 0SRC0J9 Replacement of Right Knee Joint with Synthetic Substitute, Cemented, Open Approach (ICD-10-PCS; principal; 2017-08-25 07:30)
DX: M17.11 Unilateral primary osteoarthritis, right knee (principal); Z68.42 Body mass index [BMI] 45.0-49.9, adult; E66.01 Morbid (severe) obesity due to excess calories; N18.3 Chronic kidney disease, stage 3 (moderate); I12.9 Hypertensive chronic kidney disease with stage 1 through stage 4 chronic kidney disease, or unspecified chronic kidney disease; G47.33 Obstructive sleep apnea (adult) (pediatric); K21.9 Gastro-esophageal reflux disease without esophagitis; E78.5 Hyperlipidemia, unspecified; Z98.51 Tubal ligation status; Z90.49 Acquired absence of other specified parts of digestive tract; Z79.82 Long term (current) use of aspirin; Z79.899 Other long term (current) drug therapy; Z99.89 Dependence on other enabling machines and devices

== ENCOUNTER → 2017-09-05 | Outpatient (REF) | payer MEDICARE, OTHER ==
[~2017-09-05] MED LIST changes: +PERC5TAB12 PO; +SENN-23 PO
[2017-09-05 18:14] LABS: INR 2.63
== END ==
LOC: M LABDRAW1 15:10
PROVIDERS: ATTEND Physician Assistant
DX: Z47.1 Aftercare following joint replacement surgery (principal); Z79.01 Long term (current) use of anticoagulants

== ENCOUNTER → 2017-09-07 | Outpatient (REF) | payer MEDICARE, OTHER ==
[2017-09-07 13:53] LABS: INR 2.34
== END ==
LOC: M LAB REF 13:14 → M SHH 13:15
DX: Z79.01 Long term (current) use of anticoagulants (principal)
CPT/HCPCS: 85610

== ENCOUNTER → 2017-09-12 | Outpatient (CLI) | payer MEDICARE, OTHER ==
[2017-09-12 13:10] LABS: INR 1.16
== END ==
LOC: M WUC 12:10
DX: Z51.81 Encounter for therapeutic drug level monitoring (principal); Z79.01 Long term (current) use of anticoagulants
CPT/HCPCS: 85610

== ENCOUNTER → 2017-09-14 | Outpatient (REF) | payer MEDICARE, OTHER ==
[2017-09-14 12:58] LABS: INR 1.06; PROTHROMBIN TIME 13.9 SECONDS (12.4-14.5)
== END ==
LOC: M SHH 12:07
DX: Z51.81 Encounter for therapeutic drug level monitoring (principal); Z79.01 Long term (current) use of anticoagulants
CPT/HCPCS: 85610

== ENCOUNTER → 2017-09-18 | Outpatient (REF) | payer MEDICARE, OTHER ==
[2017-09-18 14:08] LABS: INR 1.52; PROTHROMBIN TIME 18.7 SECONDS (12.4-14.5)
== END ==
LOC: M SHH 13:32
DX: Z79.01 Long term (current) use of anticoagulants (principal)
CPT/HCPCS: 85610

== ENCOUNTER → 2017-09-21 | Outpatient (REF) | payer MEDICARE, OTHER ==
[2017-09-21 14:48] LABS: INR 2.05; PROTHROMBIN TIME 23.8 SECONDS (12.4-14.5)
== END ==
LOC: M SHH 13:41
DX: Z79.01 Long term (current) use of anticoagulants (principal)
CPT/HCPCS: 85610

== ENCOUNTER → 2017-12-06 | Outpatient (CLI) | payer MEDICARE, BC, OTHER | LOC: M RAD 12:32 | DX: N18.3 Chronic kidney disease, stage 3 (moderate) (principal) | CPT/HCPCS: 76775 ==

== ENCOUNTER → 2017-12-25 | Outpatient (REF) | payer MEDICARE, OTHER ==
[2017-12-25 13:39] LABS: TOTAL PROTEIN 7.3 GM/DL (6.4-8.2)
[2017-12-25 13:49] LABS: PTH INTACT 151.9 PG/ML (18.5-88.0)
[2017-12-25 14:01] LABS: URINE TOTAL PROTEIN 11.2 MG/DL (0-12)
[2017-12-26 11:11] LABS: ALBUMIN 4.32 GM/DL (3.29-5.55); ALBUMIN % 59.2 % (55.8-66.1); ALPHA-1-GLOBULIN % 3.2 % (2.9-4.9); ALPHA-1-GLOBULINS 0.23 GM/DL (0.17-0.41); ALPHA-2-GLOBULINS 0.74 GM/DL (0.42-0.99); ALPHA-2-GLOBULINS % 10.1 % (7.1-11.8); BETA-1-GLOBULINS 0.48 GM/DL (0.28-0.60); BETA-1-GLOBULINS % 6.6 % (4.7-7.2); BETA-2-GLOBULINS 0.38 GM/DL (0.19-0.55); BETA-2-GLOBULINS % 5.2 % (3.2-6.5); GAMMA GLOBULIN % 15.7 % (11.1-18.8); GAMMA GLOBULINS 1.15 GM/DL (0.65-1.58)
[2017-12-27 14:04] LABS: UPEP INTERPRETATION NO M-SPIKE NOTED; URINE VOLUME RANDOM ML
== END ==
LOC: M LAB REF 11:59
DX: E83.52 Hypercalcemia (principal)
CPT/HCPCS: 84165

== ENCOUNTER 2018-07-10 10:02 | Emergency (ER) | payer OTHER, MEDICARE ==
[~2018-07-10] VITALS: Ht 160 cm; Wt 112.7 kg
[~2018-07-10 10:02] MED LIST changes: -AMLO5TAB2 PO; +AMLO5TAB4 PO; -PEPC1TAB4 PO; +PEPC1TAB5 PO; +SPIR-10 PO; -SPIR25TA2 PO
[2018-07-10] MEDS ORDERED: ACETAMINOPHEN 325 MG TAB PO ONE (10:15)
--- NOTE | 2018-07-10 11:08 | REP ---
CT CERVICAL SPINE WITHOUT CONTRAST: HISTORY: Trauma. There is no acute fracture or subluxation. Disc bulges are present at the C2-3 through C5-6 levels. There is minimal narrowing of the spinal canal. Facet hypertrophy is present at the C2-3, C3-4 and C5-6 through C7-T1 levels. This produces minimal narrowing of the neural foramina. The intervertebral discs are normal in height. A 5 mm calcification and 6 mm hypodensity are present in the right thyroid lobe. The hypodensity most likely represents a cyst. IMPRESSION: 1. There is no acute fracture or subluxation. 2. There is cervical spondylosis at the C2-3, C3-4 and C5-6 through C7-T1 levels. Electronically Signed by Narciso Jc MD 07/10/2018 11:11 A
[2018-07-10 12:09] VITALS: BP 151/77
--- NOTE | 2018-07-10 12:52 | REP ---
LEFT KNEE, FOUR VIEWS: HISTORY: Trauma. The patient is status post left total knee replacement. There is no acute fracture or dislocation. IMPRESSION: There is no acute fracture or dislocation. Electronically Signed by Narciso Jc MD 07/10/2018 12:53 P
[2018-08-31] MEDS ORDERED: TYLETAB14 PO (10:40)
[2018-08-31] MEDS ORDERED: SENN8.6T7 PO (10:40)
[2018-08-31] MEDS ORDERED: RANI150T PO (10:40)
== END 2018-07-10 12:23 | disposition home or self-care (01) ==
LOC: M ED 10:02
DX: S16.1XXA Strain of muscle, fascia and tendon at neck level, initial encounter (principal); S80.02XA Contusion of left knee, initial encounter; V43.52XA Car driver injured in collision with other type car in traffic accident, initial encounter; Y92.410 Unspecified street and highway as the place of occurrence of the external cause; I12.9 Hypertensive chronic kidney disease with stage 1 through stage 4 chronic kidney disease, or unspecified chronic kidney disease; N18.3 Chronic kidney disease, stage 3 (moderate); E78.9 Disorder of lipoprotein metabolism, unspecified; G47.30 Sleep apnea, unspecified; F41.9 Anxiety disorder, unspecified; F32.9 Major depressive disorder, single episode, unspecified; I35.9 Nonrheumatic aortic valve disorder, unspecified; Z79.899 Other long term (current) drug therapy; Z79.01 Long term (current) use of anticoagulants

== ENCOUNTER → 2018-08-17 | Outpatient (CLI) | payer OTHER, BC, MEDICARE | LOC: M RAD 08:35 | DX: M25.562 Pain in left knee (principal); Z96.652 Presence of left artificial knee joint | CPT/HCPCS: 78315 ==

== ENCOUNTER → 2018-08-31 | Outpatient (CLI) | payer OTHER ==
[~2018-08-31] MED LIST changes: -AMLO5TAB4 PO; +AMLO5TAB6 PO; +RANI150T PO; +SENN8.6T7 PO; +TYLETAB14 PO
--- NOTE | 2018-08-31 09:30 | REP ---
MRI CERVICAL SPINE WITHOUT CONTRAST: HISTORY: Neck pain. A disc bulge is present at the C6-7 level. There is minimal effacement of the thecal sac without spinal cord compression. The C6 neural foramina are patent. There is no other disc bulge or herniation. The remaining neural foramina are patent. The spinal cord is normal in signal intensity. Normal signal intensity is present in the cervical vertebral bodies. IMPRESSION: Disc bulge at the C6-7 level without spinal cord compression. Electronically Signed by Narciso Jc MD 08/31/2018 09:32 A
--- NOTE | 2018-08-31 09:58 | REP ---
MR LUMBAR SPINE WITHOUT CONTRAST: HISTORY: Back pain. Decreased signal intensity on T2-weighted images is present in the T12-L1 through L4-5 intervertebral discs. The L4-5 intervertebral disc is decreased in height. These findings are consistent with disc degeneration. There is no disc bulge or herniation at the L1-2 and L5-S1 levels. There is hypertrophy of the posterior articulating facets at the L5-S1 level. There is partial sacralization of the L5 vertebral body. The nerves exit the neural foramina without compression. A diffuse disc bulge is present at the L2-3 level. There is hypertrophy of the ligamenta flava and posterior articulating facets. These findings produce minimal central canal stenosis. The L2 nerves exit the neural foramina without compression. A diffuse disc bulge is present at the L3-4 level. There is hypertrophy of the ligamenta flava and posterior articulating facets. These findings produce minimal central canal stenosis. The L3 nerves exit the neural foramina without compression. A subchondral cyst is present in the left L3 facet. A diffuse disc bulge is present at the L4-5 level. There is hypertrophy of the ligamenta flava and posterior articulating facets. There are 3 mm of grade 1 spondylolisthesis of L4 on 5. These finding produce minimal central canal stenosis. The L4 nerves exit the neural foramina without compression. The conus medullaris is normal in appearance terminating at the level of the L1-2 intervertebral disc. Normal signal intensity is present in the lumbar vertebral bodies. IMPRESSION: 1. Minimal central canal stenosis at the L2-3 and L3-4 levels secondary to disc bulge, ligamentous, and facet hypertrophy. 2. Minimal central canal stenosis at the L4-5 level secondary to disc bulge, ligamentous, and facet hypertrophy, and grade 1 spondylolisthesis. Electronically Signed by Narciso Jc MD 08/31/2018 10:04 A
== END ==
LOC: M RAD 07:49
PROVIDERS: ATTEND Physician Assistant
DX: M54.2 Cervicalgia (principal)

== ENCOUNTER → 2018-09-05 | Outpatient (CLI) | payer MEDICARE, BC, OTHER ==
--- NOTE | 2018-09-05 11:53 | REP ---
Clinical: Preoperative assessment . Comparison: 08/10/2017 . Technique: PA and lateral. Findings: The mediastinum and cardiac silhouette are normal. The lung baker are clear and without acute consolidation, effusion, or pneumothorax. The skeletal structures are intact and normal. Impression: 1. No acute cardiopulmonary process. Electronically Signed by Tian Floyd MD 09/05/2018 11:44 A
== END ==
LOC: M RAD 11:24
PROVIDERS: ATTEND Podiatrist
DX: Z01.818 Encounter for other preprocedural examination (principal); M79.671 Pain in right foot; T84.213A Breakdown (mechanical) of internal fixation device of bones of foot and toes, initial encounter; Y83.1 Surgical operation with implant of artificial internal device as the cause of abnormal reaction of the patient, or of later complication, without mention of misadventure at the time of the procedure

== ENCOUNTER → 2018-09-07 | Day surgery (SDC) | payer OTHER ==
[~2018-09-07] MED LIST changes: -AMLO5TAB6 PO; -ASPI1TAB PO; -ATOR1TAB19 PO; -CELE10TA PO; -CHLO25TA PO; -CORITAB5 PO; -COUM2.5T17 PO; -CQ10 PO; -FLON1SPR; +KETOROLAC 60 MG/2 ML VIAL (J1885) As Ordered; +LIDOCAINE 2% INJ 100 MG/5 ML SDV (FOR ANES.) As Ordered; +LR 1,000 ML IV; -MAGN1TAB25 PO; -METO1TAB33 PO; +MIDAZOLAM INJ 2 MG/2 ML VIAL (J2250) As Ordered; -MULT1TAB15 PO; -ONDA4TAB6 PO; +ONDANSETRON 4MG/2ML VIAL (J2405) As Ordered; +ONDANSETRON 4MG/2ML VIAL (J2405) IV; -PEG1POW PO; -PEPC1TAB5 PO; -PERC5TAB12 PO; +PERCOCET 5MG/325MG TAB PO; -PERCOCET PO; +PROPOFOL 200 MG/20 ML VIAL As Ordered; -RANI150T PO; -SENN-23 PO; -SENN8.6T7 PO; -SENO8.6T10 PO; -SENO8.6T5 PO; -SPIR-10 PO; -TRAM50TA2 PO; -TYLE650T35 PO; -TYLETAB14 PO; +dexameTHASONE 4 MG/ML 1ML VIAL (J1100) As Ordered; +fentaNYL 100 MCG/2 ML INJECTION (J3010) As Ordered; +fentaNYL 100 MCG/2 ML INJECTION (J3010) IV
[2018-09-07] MEDS: LR 1,000 ML IV (10:52)
[2018-09-07] MEDS: LIDOCAINE 2% MDV 20 ML VIAL As Ordered (12:29)
[2018-09-07] MEDS: NEOSPORIN GU IRRIG 20 ML VIAL As Ordered (12:29)
[2018-09-07] MEDS: BACITRACIN PWD 50,000 UNITS VIAL As Ordered (12:29)
[2018-09-07] MEDS: ROPIvacaine 0.5% 30 ML INJECTION (J2795 PER 1MG) As Ordered (12:29)
[2018-09-07] MEDS: BUPIVACAINE HCL 0.5% 30 ML VIAL As Ordered (12:48)
[2018-09-07] MEDS: dexameTHASONE 4 MG/ML 1ML VIAL (J1100) As Ordered (13:01)
== END | disposition home or self-care (01) ==
LOC: M SDC 10:00
DX: T84.213A Breakdown (mechanical) of internal fixation device of bones of foot and toes, initial encounter (principal); M92.71 Juvenile osteochondrosis of metatarsus, right foot; I35.1 Nonrheumatic aortic (valve) insufficiency; I35.0 Nonrheumatic aortic (valve) stenosis; E78.00 Pure hypercholesterolemia, unspecified; I10 Essential (primary) hypertension; N18.3 Chronic kidney disease, stage 3 (moderate); E05.00 Thyrotoxicosis with diffuse goiter without thyrotoxic crisis or storm; E83.52 Hypercalcemia; R73.03 Prediabetes; E66.09 Other obesity due to excess calories; Z79.899 Other long term (current) drug therapy
CPT/HCPCS: 20680

== ENCOUNTER → 2018-09-21 | Outpatient (REF) | payer MEDICARE, OTHER ==
[~2018-09-21] MED LIST changes: +AMLO5TAB6 PO; +ASPI1TAB PO; +ATOR1TAB19 PO; +CELE10TA PO; +CHLO25TA PO; +CORITAB5 PO; +COUM2.5T17 PO; +CQ10 PO; +FLON1SPR; -KETOROLAC 60 MG/2 ML VIAL (J1885) As Ordered; -LIDOCAINE 2% INJ 100 MG/5 ML SDV (FOR ANES.) As Ordered; -LR 1,000 ML IV; +MAGN1TAB25 PO; +METO1TAB33 PO; -MIDAZOLAM INJ 2 MG/2 ML VIAL (J2250) As Ordered; +MULT1TAB15 PO; +ONDA4TAB6 PO; -ONDANSETRON 4MG/2ML VIAL (J2405) As Ordered; -ONDANSETRON 4MG/2ML VIAL (J2405) IV; +PEG1POW PO; +PEPC1TAB5 PO; +PERC5TAB12 PO; -PERCOCET 5MG/325MG TAB PO; +PERCOCET PO; -PROPOFOL 200 MG/20 ML VIAL As Ordered; +RANI150T PO; +SENN-23 PO; +SENN8.6T7 PO; +SENO8.6T10 PO; +SENO8.6T5 PO; +SPIR-10 PO; +TRAM50TA2 PO; +TYLE650T35 PO; +TYLETAB14 PO; -dexameTHASONE 4 MG/ML 1ML VIAL (J1100) As Ordered; -fentaNYL 100 MCG/2 ML INJECTION (J3010) As Ordered; -fentaNYL 100 MCG/2 ML INJECTION (J3010) IV
[2018-09-21 13:32] LABS: TOTAL PROTEIN 7.5 GM/DL (6.4-8.2)
[2018-09-23 00:06] LABS: FREE KAPPA LIGHT CHAINS SERUM 24.4 mg/L (3.3-19.4); FREE LAMBDA LIGHT CHAINS SERUM 22.2 mg/L (5.7-26.3); KAPPA/LAMBDA RATIO SERUM 1.1 (0.26-1.65)
[2018-09-25 13:09] LABS: ALBUMIN 4.45 GM/DL (3.29-5.55); ALBUMIN % 59.3 % (55.8-66.1); ALPHA-1-GLOBULIN % 3.5 % (2.9-4.9); ALPHA-1-GLOBULINS 0.26 GM/DL (0.17-0.41); ALPHA-2-GLOBULINS 0.76 GM/DL (0.42-0.99); ALPHA-2-GLOBULINS % 10.1 % (7.1-11.8); BETA-1-GLOBULINS 0.47 GM/DL (0.28-0.60); BETA-1-GLOBULINS % 6.3 % (4.7-7.2); BETA-2-GLOBULINS 0.39 GM/DL (0.19-0.55); BETA-2-GLOBULINS % 5.2 % (3.2-6.5); GAMMA GLOBULIN % 15.6 % (11.1-18.8); GAMMA GLOBULINS 1.17 GM/DL (0.65-1.58)
== END ==
LOC: M LAB REF 13:11
PROVIDERS: ATTEND Internal Medicine Nephrology
DX: N18.3 Chronic kidney disease, stage 3 (moderate) (principal); E83.52 Hypercalcemia

== ENCOUNTER → 2019-02-01 | Outpatient (REF) | payer MEDICARE, OTHER ==
[~2019-02-01] MED LIST changes: -ASPI1TAB PO; +ASPI81TA26 PO; -MAGN1TAB25 PO; +MAGN1TAB26 PO; +SENN1TAB41 PO; -SENN8.6T7 PO
[2019-02-01 14:37] LABS: INR 0.91; PROTHROMBIN TIME 12.3 SECONDS (12.1-14.4)
[2019-02-01 14:38] LABS: PARTIAL THROMBOPLASTIN TIME 33.7 SECONDS (25.4-37.6)
== END ==
LOC: M LABDRAW1 14:09
PROVIDERS: ATTEND Physician Assistant
DX: Z01.812 Encounter for preprocedural laboratory examination (principal); Z79.899 Other long term (current) drug therapy

== ENCOUNTER → 2019-09-13 | Outpatient (REF) | payer MEDICARE, OTHER ==
[2019-09-13 14:53] LABS: AMPHETAMINES URINE REFLEX NEGATIVE (NEGATIVE); BARBITURATES URINE REFLEX NEGATIVE (NEGATIVE); BENZODIAZEPINES URINE REFLEX NEGATIVE (NEGATIVE); CANNABINOIDS URINE REFLEX NEGATIVE (NEGATIVE); COCAINE METABOLITE URINE REFLE NEGATIVE (NEGATIVE); METHADONE URINE REFLEX NEGATIVE (NEGATIVE); OPIATES URINE REFLEX NEGATIVE (NEGATIVE); PHENCYCLIDINE URINE REFLEX NEGATIVE (NEGATIVE)
== END ==
LOC: M LAB REF 11:54
PROVIDERS: ATTEND Physical Medicine & Rehabilitation
DX: M50.323 Other cervical disc degeneration at C6-C7 level (principal); M50.322 Other cervical disc degeneration at C5-C6 level; M47.892 Other spondylosis, cervical region

== ENCOUNTER → 2020-04-22 | Outpatient (REF) | payer MEDICARE, OTHER ==
[~2020-04-22] MED LIST changes: +ACET650T61 PO; +AMLO1TAB24 PO; -AMLO5TAB6 PO; -TYLE650T35 PO
== END ==
LOC: M WUC 15:58
PROVIDERS: ATTEND Physician Assistant
DX: M19.072 Primary osteoarthritis, left ankle and foot (principal)

== ENCOUNTER → 2020-09-14 | Outpatient (REF) | payer MEDICARE, OTHER ==
[2020-09-14 17:47] LABS: INR 0.92; PROTHROMBIN TIME 12.6 SECONDS (12.5-14.3)
== END ==
LOC: M LAB REF 16:36
PROVIDERS: ATTEND Internal Medicine
DX: M51.27 Other intervertebral disc displacement, lumbosacral region (principal)

== ENCOUNTER → 2021-04-12 | Outpatient (REF) | payer MEDICARE, OTHER ==
[~2021-04-12] MED LIST changes: -PEG1POW PO; +POLY17PO18 PO
[2021-04-12 14:16] LABS: MAGNESIUM LEVEL 2.1 MG/DL (1.8-2.4)
== END ==
LOC: M LAB REF 13:08
PROVIDERS: ATTEND Internal Medicine Nephrology
DX: N18.32 Chronic kidney disease, stage 3b (principal); I50.32 Chronic diastolic (congestive) heart failure; N25.81 Secondary hyperparathyroidism of renal origin; E83.42 Hypomagnesemia

== ENCOUNTER → 2021-04-19 | Outpatient (CLI) | payer MEDICARE, OTHER ==
[2021-04-19 17:23] LABS: PLATELET COUNT, AUTOMATED 226 10^3/uL (150-450)
[2021-04-19 17:26] LABS: INR 0.89; PARTIAL THROMBOPLASTIN TIME 35.2 SECONDS (25.9-37.0); PROTHROMBIN TIME 12.5 SECONDS (12.7-14.5)
== END ==
LOC: M WUC 14:30
PROVIDERS: ATTEND Physician Assistant
DX: Z01.812 Encounter for preprocedural laboratory examination (principal); Z79.899 Other long term (current) drug therapy

== ENCOUNTER → 2021-08-11 | Outpatient (REF) | payer MEDICARE, OTHER | LOC: M LAB REF 17:20 | PROVIDERS: ATTEND Internal Medicine Nephrology | DX: E83.42 Hypomagnesemia (principal) ==

== ENCOUNTER → 2021-08-25 | Outpatient (CLI) | payer MEDICARE, OTHER ==
[2021-08-25 13:29] LABS: PLATELET COUNT, AUTOMATED 205 10^3/uL (150-450)
[2021-08-25 13:40] LABS: INR 0.99; PROTHROMBIN TIME 13.5 SECONDS (12.7-14.5)
[2021-08-25 13:41] LABS: PARTIAL THROMBOPLASTIN TIME 38.2 SECONDS (25.9-37.0)
[2021-08-25 13:58] LABS: COLLAGEN EPINEPHRINE 178 SECONDS (74-162)
[2021-08-25 14:37] LABS: COLLAGEN ADP 91 SECONDS (56-103)
== END ==
LOC: M PLALAB 11:08
PROVIDERS: ATTEND Physician Assistant
DX: M48.061 Spinal stenosis, lumbar region without neurogenic claudication (principal); Z79.899 Other long term (current) drug therapy

== ENCOUNTER → 2021-09-06 | Outpatient (CLI) | payer MEDICARE, BC, OTHER ==
[2021-09-06 09:18] LABS: COLLAGEN EPINEPHRINE 156 SECONDS (74-162)
== END ==
LOC: M LAB 08:13
PROVIDERS: ATTEND Physical Medicine & Rehabilitation
DX: Z01.818 Encounter for other preprocedural examination (principal)

== ENCOUNTER → 2021-10-28 | Outpatient (CLI) | payer MEDICARE, BC, OTHER | LOC: M PLAIMG 12:25 | PROVIDERS: ATTEND Physician Assistant | DX: M48.02 Spinal stenosis, cervical region (principal) ==

== ENCOUNTER → 2021-11-19 | Outpatient (REF) | payer MEDICARE, BC, OTHER | LOC: M SFHCDERM 17:21 | PROVIDERS: ATTEND Dermatology | DX: D23.5 Other benign neoplasm of skin of trunk (principal) ==

== ENCOUNTER → 2021-12-02 | Outpatient (REF) | payer MEDICARE, BC, OTHER | LOC: M SFHCDERM 17:12 | PROVIDERS: ATTEND Dermatology | DX: D22.5 Melanocytic nevi of trunk (principal) ==

== ENCOUNTER → 2022-02-17 | Outpatient (CLI) | payer MEDICARE, BC, OTHER ==
[~2022-02-17] MED LIST changes: +CHLO1TAB35 PO; -CORITAB5 PO
== END ==
LOC: M PLAIMG 12:38
PROVIDERS: ATTEND Physician Assistant
DX: M48.062 Spinal stenosis, lumbar region with neurogenic claudication (principal)

== ENCOUNTER → 2022-03-29 | Outpatient (CLI) | payer MEDICARE, BC, OTHER | LOC: M RAD 08:36 | PROVIDERS: ATTEND Internal Medicine Nephrology | DX: N28.1 Cyst of kidney, acquired (principal) ==

== ENCOUNTER → 2022-04-07 | Outpatient (REF) | payer MEDICARE, OTHER | LOC: M SFHCDERM 17:25 | PROVIDERS: ATTEND Dermatology | DX: L90.5 Scar conditions and fibrosis of skin (principal); D22.5 Melanocytic nevi of trunk ==

== ENCOUNTER → 2022-05-18 | Outpatient (REF) | payer MEDICARE, OTHER ==
[2022-05-20 04:07] LABS: LDL DIRECT 139 mg/dL (0-99)
== END ==
LOC: M LAB REF 15:01
PROVIDERS: ATTEND Internal Medicine
DX: E78.5 Hyperlipidemia, unspecified (principal)

== ENCOUNTER → 2022-05-25 | Outpatient (CLI) | payer MEDICARE, OTHER ==
[2022-05-25 20:08] LABS: PLATELET COUNT, AUTOMATED 196 10^3/uL (150-450)
[2022-05-25 20:15] LABS: INR 0.94
[2022-05-25 20:16] LABS: PARTIAL THROMBOPLASTIN TIME 35.5 SECONDS (25.9-37.0)
== END ==
LOC: M WUC 15:40
PROVIDERS: ATTEND Physician Assistant
DX: M54.16 Radiculopathy, lumbar region (principal)

== ENCOUNTER → 2022-07-13 | Outpatient (REF) | payer MEDICARE, OTHER | LOC: M LAB REF 17:54 | PROVIDERS: ATTEND Ophthalmology | DX: D23.111 Other benign neoplasm of skin of right upper eyelid, including canthus (principal); D23.121 Other benign neoplasm of skin of left upper eyelid, including canthus ==

== ENCOUNTER → 2022-12-14 | Outpatient (CLI) | payer MEDICARE, OTHER, BC ==
[2022-12-14 15:58] LABS: PLATELET COUNT, AUTOMATED 219 10^3/uL (150-450)
[2022-12-14 16:08] LABS: INR 0.91; PROTHROMBIN TIME 12.5 SECONDS (12.5-14.5)
[2022-12-14 16:09] LABS: PARTIAL THROMBOPLASTIN TIME 36.1 SECONDS (24.8-34.2)
== END ==
LOC: M PLALAB 14:06
PROVIDERS: ATTEND Physician Assistant
DX: Z01.818 Encounter for other preprocedural examination (principal); Z79.899 Other long term (current) drug therapy

== ENCOUNTER → 2023-01-19 | Outpatient (CLI) | payer MEDICARE, BC, OTHER | LOC: M WHC 10:11 | PROVIDERS: ATTEND Nurse Practitioner Family | DX: Z13.820 Encounter for screening for osteoporosis (principal); Z12.31 Encounter for screening mammogram for malignant neoplasm of breast ==

== ENCOUNTER → 2023-01-25 | Outpatient (CLI) | payer MEDICARE, BC, OTHER | LOC: M RAD 09:10 | PROVIDERS: ATTEND Nurse Practitioner Family | DX: K76.0 Fatty (change of) liver, not elsewhere classified (principal); Z90.49 Acquired absence of other specified parts of digestive tract ==

== ENCOUNTER → 2023-02-24 | Outpatient (CLI) | payer MEDICARE, BC, OTHER | LOC: M RAD 12:51 | PROVIDERS: ATTEND Podiatrist | DX: M79.672 Pain in left foot (principal); M76.822 Posterior tibial tendinitis, left leg; S96.0 Injury of muscle and tendon of long flexor muscle of toe at ankle and foot level ==

== ENCOUNTER → 2023-08-14 | Outpatient (CLI) | payer MEDICARE, BC, OTHER ==
[2023-08-14 13:12] LABS: PLATELET COUNT, AUTOMATED 235 10^3/uL (150-450)
[2023-08-14 13:32] LABS: INR 1.04; PROTHROMBIN TIME 13.3 SECONDS (12.5-14.5)
[2023-08-14 13:33] LABS: PARTIAL THROMBOPLASTIN TIME 33.9 SECONDS (24.8-34.2)
== END ==
LOC: M PLALAB 10:55
PROVIDERS: ATTEND Physician Assistant
DX: Z01.818 Encounter for other preprocedural examination (principal)

== ENCOUNTER → 2023-09-12 | Outpatient (REF) | payer MEDICARE, BC, OTHER | LOC: M LAB REF 16:38 | PROVIDERS: ATTEND Internal Medicine | DX: M25.50 Pain in unspecified joint (principal) ==

== ENCOUNTER → 2024-01-12 | Outpatient (CLI) | payer MEDICARE, BC ==
[~2024-01-12] MED LIST changes: -SENN1TAB41 PO; +SENN1TAB85 PO
== END ==
LOC: M PLAIMG 07:34
PROVIDERS: ATTEND Internal Medicine
DX: I50.32 Chronic diastolic (congestive) heart failure (principal); R00.1 Bradycardia, unspecified; I44.0 Atrioventricular block, first degree; I44.7 Left bundle-branch block, unspecified; I35.8 Other nonrheumatic aortic valve disorders; I35.0 Nonrheumatic aortic (valve) stenosis

== ENCOUNTER → 2024-08-30 | Outpatient (REF) | payer MEDICARE, BC ==
[~2024-08-30] MED LIST changes: +ONDA-282 PO; -ONDA4TAB6 PO
[2024-08-30 18:21] LABS: CREATININE,RANDOM URINE 115.6 MG/DL
== END ==
LOC: M LAB REF 16:59
PROVIDERS: ATTEND Internal Medicine Nephrology
DX: I12.9 Hypertensive chronic kidney disease with stage 1 through stage 4 chronic kidney disease, or unspecified chronic kidney disease (principal)

== ENCOUNTER → 2025-06-11 | Outpatient (CLI) | payer MEDICARE, BC ==
[~2025-06-11] MED LIST changes: +SENN-225 PO; -SENO8.6T5 PO
== END ==
LOC: M PLAIMG 13:35
PROVIDERS: ATTEND Internal Medicine
DX: I35.0 Nonrheumatic aortic (valve) stenosis (principal)